=== PATIENT | male | born 1970 | race Caucasian/White ===

== ENCOUNTER 2017-03-14 14:36 | Inpatient (IN) | payer OTHER ==
[2017-03-14] MEDS ORDERED: TYLENOL 325 MG PO PRN (14:39)
[2017-03-14 15:05] LABS: BASOPHIL % 0.2 % (0.0-0.4); Eosinophil % 0.9 % (0.00-5.0); Granulocytes % 78.4 % (36.0-66.0); Mean Cell Volume 89.4 fl (78-100); Mean Platelet Volume 9.8 fl (6-9.5); Monocytes % 8.5 % (0.0-12.0); Platelet Count 341 K/mm3 (150-450); Red Blood Count 4.53 M/mm3 (4.1-5.6); White Blood Count 12.5 K/mm3 (4.0-10.5)
[2017-03-14 15:35] LABS: ALBUMIN 2.8 g/dL (3.4-5.0); ALKALINE PHOSPHATASE 83 U/L (46-116); ANION GAP 13.4 MEQ/L (5-15); BILIRUBIN,TOTAL 0.3 mg/dL (0.2-1.0); BLOOD UREA NITROGEN 13 mg/dL (9-20); CHLORIDE 104 mEq/L (98-107); Carbon Dioxide 26.5 mEq/L (21-32); Glucose 95 MG/DL (70-110); Potassium 4.6 mEq/L (3.5-5.1); SGOT/AST 38 U/L (15-37); SGPT/ALT 114 U/L (12-78); SODIUM 139 mEq/L (136-145); Total Protein 7.2 gm/dL (6.4-8.2)
[2017-03-14] MEDS: LEVOFLOXACIN 750MG/150ML D5W 150 ML IV SCH (15:42)
[2017-03-14] MEDS: Sodium Chloride 0.9% 1000 ML 1,000 ML IV SCH (15:43)
[2017-03-14] MEDS ORDERED: DUONEB 0.5-3 MG/3 ml Neb IH ONE (15:46)
[2017-03-14] MEDS: DUONEB 0.5-3 MG/3 ml Neb IH SCH ×2 (15:51→23:05)
[2017-03-14 16:22] LABS: BAND 2 % (0.0-2.0); Platelet Estimate NORMAL (NORMAL); Total Cells Counted 100
[2017-03-14] MEDS ORDERED: TYLENOL EXTRA STRENGTH 500 MG PO PRN (16:37)
[2017-03-14] MEDS ORDERED: Tessalon Perles 100 MG PO PRN (16:37)
[2017-03-14] MEDS ORDERED: MOTRIN 200 MG PO PRN (16:37)
--- NOTE | 2017-03-14 17:01 | XRAY ---
Indication: Left lung infection not responding to medication. Multiple contiguous axial images obtained through the chest prior to and following 80 cc of Isovue-370 contrast. Comparison: August 15, 2009. In the lateral left upper lobe, there is a large focus of biconvex predominantly consolidative opacity measuring 13 x 7 cm in greatest AP and transverse dimension respectively. There are scattered pockets of air within this opacity as well as air fluid leveling. Margins appear irregular. Primary differential includes abscess versus fungal infection/tuberculosis/pneumocystis pneumonia versus cavitary malignancy. Elsewhere there is again diffuse moderate centrilobular pulmonary emphysema. Stable right upper lobe calcified granuloma. No effusion. Heart is not enlarged. Aorta is normal in course and caliber. There are a few prominent mediastinal lymph nodes predominantly in the AP window, largest measuring 1.8 x 2.0 cm. Bony thorax intact with minimal degenerative changes throughout the spine and multilevel tiny Schmorl nodes. Limited upper abdomen demonstrates new 2.5 cm right adrenal mass with fatty Hounsfield units favoring benign adenoma. Impression: 1. Left upper lobe consolidative opacity as detailed above. Partial differential offered above. 2. Mediastinal prominent lymph nodes presumed reactive. 3. Stable pulmonary emphysema and evidence for old granulomatous disease. 4. New right adrenal adenoma. CTDI 15.74
[2017-03-14] MEDS: Zosyn 3.375GM/100 Ml D5W 100 ML IV SCH ×2 (17:27→23:56)
[2017-03-14] MEDS: TYLENOL EXTRA STRENGTH 500 MG PO PRN (17:27)
[2017-03-14] MEDS ORDERED: ENOXAPARIN SODIUM SQ SCH (18:00)
[2017-03-14] MEDS ORDERED: DUONEB 0.5-3 MG/3 ml Neb IH PRN (19:16)
[2017-03-14] MEDS: MOTRIN 400 MG PO PRN (20:57)
[2017-03-15] MEDS: Sodium Chloride 0.9% 1000 ML 1,000 ML IV SCH (03:20)
[2017-03-15] MEDS: DUONEB 0.5-3 MG/3 ml Neb IH SCH ×6 (03:31→23:05)
[2017-03-15] MEDS: Zosyn 3.375GM/100 Ml D5W 100 ML IV SCH ×4 (05:01→23:09)
[2017-03-15] MEDS ORDERED: Advair Hfa 230/21 Mcg COMMON CANISTER IH SCH ×2 (07:00)
[2017-03-15] MEDS: PATIENT OWN MEDICATION IH SCH (07:07)
--- NOTE | 2017-03-15 08:13 | PCM.NOTE ---
Date and Time: 03/15/17811 Subjective Assessment: still very short of breath - Review of Systems Constitutional: No Fever, No Chills Eyes: No Symptoms Ears, Nose, & Throat: No Symptoms Respiratory: Cough, Orthopnea, Short Of Breath, Wheezing Cardiac: No Chest Pain, No Edema, No Syncope Abdominal/Gastrointestinal: No Abdominal Pain, No Nausea, No Vomiting, No Diarrhea Genitourinary Symptoms: No Dysuria Musculoskeletal: No Back Pain, No Neck Pain Skin: No Rash Neurological: No Dizziness, No Focal Weakness, No Sensory Changes Psychological: No Symptoms Endocrine: No Symptoms Hematologic/Lymphatic: No Symptoms Immunological/Allergic: No Symptoms Objective Exam General Appearance: moderate distress, alert Neurologic Exam: alert, oriented x 3, cooperative, normal mood/affect, nml cerebellar function, sensation nml, No motor deficits Skin Exam: normal color, warm, dry Eye Exam: PERRL, EOMI, eyes nml inspection Ears, Nose, Throat Exam: normal ENT inspection, pharynx normal, moist mucous membranes Neck Exam: normal inspection, non-tender, supple, full range of motion Respiratory Exam: respiratory distress, diminished breath sounds, crackles/rales , rhonchi, wheezing Cardiovascular Exam: regular rate/rhythm, normal heart sounds Gastrointestinal/Abdomen Exam: soft, No tenderness, No mass Extremity Exam: normal inspection, normal range of motion Back Exam: normal inspection, normal range of motion, No CVA tenderness, No vertebral tenderness Male Genitalia Exam: deferred Rectal Exam: deferred OBJECTIVE DATA Vital Signs: Vital Signs - 24 hr Temp Pulse Resp BP Pulse Ox 03/15/17 07:50 98.4 F 103 H 18 115/72 92 L 03/15/17 07:00 106 H 18 94 L 03/15/17 05:57 16 03/15/17 04:00 97.2 F 90 16 107/62 92 L 03/15/17 03:00 90 16 92 L 03/15/17 02:00 21 03/15/17 00:00 98.7 F 99 H 21 117/67 95 03/14/17 23:00 83 18 95 03/14/17 22:00 19 03/14/17 20:00 98.2 F 100 H 19 123/76 95 03/14/17 19:21 90 18 96 03/14/17 15:57 98.0 F 100 H 20 119/85 95 03/14/17 15:42 97 H 18 96 Pain Assessment - Last Documented Pain Intensity 6 Pain Scale Used 0-10 Pain Scale Intake and Output: Intake & Output 03/12/17 03/13/17 03/14/17 03/15/17 11:59 11:59 11:59 11:59 Intake Total 1435 Balance 1435 Weight 90.322 kg Lab Results: Lab Results-Last 24 Hours 03/14/17 03/14/17 Range/Units 14:45 14:45 WBC 12.5 H (4.0-10.5) K/mm3 RBC 4.53 (4.1-5.6) M/mm3 Hgb 13.6 (12.5-18.0) gm/dl Hct 40.5 L (42-50) % MCV 89.4 (78-100) fl MCH 30.0 (26-32) pg MCHC 33.6 (32-36) g/dl RDW 15.0 H (11.5-14.0) % Plt Count 341 (150-450) K/mm3 MPV 9.8 H (6-9.5) fl Gran % 78.4 H (36.0-66.0) % Lymphocytes % 12.0 L (24.0-44.0) % Monocytes % 8.5 (0.0-12.0) % Eosinophils % 0.9 (0.00-5.0) % Basophils % 0.2 (0.0-0.4) % Segmented Neutrophils 86 H (36.-66.) % Band Neutrophils 2 (0.0-2.0) % Lymphocytes (Manual) 10 L (24-44) % Monocytes (Manual) 2 (0.0-12.0) % Basophils # 0.03 (0-0.4) Differential Comment NORMAL Platelet Estimate NORMAL (NORMAL) Sodium 139 (136-145) mEq/L Potassium 4.6 (3.5-5.1) mEq/L Chloride 104 (98-107) mEq/L Carbon Dioxide 26.5 (21-32) mEq/L Anion Gap 13.4 (5-15) MEQ/L BUN 13 (9-20) mg/dL Creatinine 0.96 (0.55-1.30) mg/dl Estimated GFR > 60 ML/MIN Glucose 95 (70-110) MG/DL Calcium 8.7 (8.5-10.1) mg/dL Total Bilirubin 0.3 (0.2-1.0) mg/dL AST 38 H (15-37) U/L ALT 114 H (12-78) U/L Alkaline Phosphatase 83 (46-116) U/L Serum Total Protein 7.2 (6.4-8.2) gm/dL Albumin 2.8 L (3.4-5.0) g/dL Radiology Exams: Radiology Procedures Category Date Time Status CHEST 2 VIEWS (PA AND LAT) Routine Exams 03/16/17 08:00 Ordered CHEST W/WO CONTRAST [CT] Stat Exams 03/14/17 14:45 Completed Multi-Disciplinary Progress Notes: Multi-Disciplinary Progress Notes 03/14/17 15:51 Respiratory Note by Saira Forrester PT TAKES BREO QAM . HAS HAD DOSE TODAY. TO BRING IN HOME MED TO USE Initialized on 03/14/17 15:51 - END OF NOTE Assessment/Plan (1) Failure of outpatient treatment Current Visit: No Status: Acute Code(s): Z78.9 - OTHER SPECIFIED HEALTH STATUS (2) Pneumonia Current Visit: Yes Status: Acute Qualifiers: Pneumonia type: due to unspecified organism Laterality: left Lung location: upper lobe of lung Qualified Code(s): J18.1 - Lobar pneumonia, unspecified organism Code(s): J18.9 - PNEUMONIA, UNSPECIFIED ORGANISM
--- NOTE | 2017-03-15 08:29 | CONS ---
CONSULT DATE: 03/14/2017 HISTORY: Arvind Chappell is a 46 year-old male with significant smoking history who was recently hospitalized at [facility] with left upper lobe pneumonia. The patient was discharged over the weekend by Dr. Amaya. He states that he has continued to have fever spikes with continued pleuritic pain. He was seen by Dr. Amaya in outpatient setting last week and was treated with bronchodilators consisting of Combivent and Breo. The patient's symptoms got progressively worse leading to another admission at [facility]. His chest x-ray performed showed a possible cavitating air fluid level. However a CT chest was obtained earlier that has only shown persistent infiltrate involving the left upper lobe. At the time of my evaluation the patient is awake, able to speak. He is on room air maintaining good oxygen saturation. He reports low grade temperature at home. He has not had any hemoptysis. He does report cough productive of thick mucopurulent expectoration. PAST MEDICAL HISTORY: Positive for chronic obstructive pulmonary disease. The patient unfortunately continues to smoke during this entire stay. PAST SURGICAL HISTORY: Appendectomy, testicular surgery. PERSONAL AND SOCIAL HISTORY: Smokes half to one pack of cigarettes per day. with family. MEDICATIONS: Home and current medications are reviewed. ALLERGIES: NKDA. PHYSICAL EXAMINATION: This is a middle aged male who appears comfortable. Vital signs are noted. HEENT: Normocephalic. Oral exam is limited. NECK: Supple. CVS: First and second heart sounds are normal, regular, rhythmic. RESPIRATORY: Shows diminished breath sounds, occasional crackles are heard on left. ABDOMEN: Soft, no edema is noted. LABORATORY DATA AND TESTS: White blood cell count 12.5, hemoglobin 13.6, hematocrit 40.5, PLT 341,000. Sodium 139, potassium 4.6, chloride 104, bicarb 26, glucose 95, BUN 13, creatinine 0.9. Chest x-ray and CT chest were reviewed. ASSESSMENT: This is a 46 year old male admitted with: 1) Non-resolving left upper lobe community acquired pneumonia. 2) Underlying chronic obstructive pulmonary disease with mild exacerbation. 3) Nicotine addiction. RECOMMENDATIONS: 1) The patient has been started on Zosyn and Levaquin. 2) Check sputum and blood cultures. 3) Continue bronchodilators. 4) Need for smoking cessation was stressed. 5) Will obtain follow up x-ray in 48 hours. If no improvement is noted he will require additional diagnostic work up including possible bronchoscopy and may require to be transferred to [facility] for the same. Further recommendations pending clinical improvement which is imperative that the patient is followed until complete resolution of this infiltrate particularly given his history of smoking and this was discussed with the patient. I will continue to follow.
[2017-03-15] MEDS: TYLENOL EXTRA STRENGTH 500 MG PO PRN (08:53)
[2017-03-15] MEDS ORDERED: NON-FORMULARY ITEM (Fluticasone/Vilanterol [Breo Ellipta 200-25 Mcg Inh] 1 EACH) IH SCH (10:00)
[2017-03-15] MEDS: ENOXAPARIN SODIUM SQ SCH (10:12)
[2017-03-15] MEDS: MOTRIN 400 MG PO PRN (11:23)
[2017-03-15] MEDS: LEVOFLOXACIN 750MG/150ML D5W 150 ML IV SCH (11:23)
[2017-03-15] MEDS: Nicoderm CQ 21 MG TOP SCH (13:32)
[2017-03-15] MEDS: ULTRAM 50 MG PO PRN ×2 (15:38→21:13)
[2017-03-15] MEDS ORDERED: Sodium Chloride 0.9% 1000 ML 1,000 ML IV SCH (18:53)
[2017-03-16] MEDS: DUONEB 0.5-3 MG/3 ml Neb IH SCH ×4 (02:54→14:53)
[2017-03-16] MEDS: Zosyn 3.375GM/100 Ml D5W 100 ML IV SCH ×3 (05:25→17:35)
[2017-03-16] MEDS: ULTRAM 50 MG PO PRN ×2 (05:31→13:35)
[2017-03-16] MEDS: PATIENT OWN MEDICATION IH SCH (06:57)
--- NOTE | 2017-03-16 08:44 | XRAY ---
Indication: Pneumonia. Comparison: March 12, 2017. PA/lateral chest demonstrates very minimal improvement to the left upper lobe consolidating opacity. Remaining heart and lungs stable and unremarkable.
[2017-03-16] MEDS: Nicoderm CQ 21 MG TOP SCH (09:38)
[2017-03-16] MEDS: LEVOFLOXACIN 750MG/150ML D5W 150 ML IV SCH (09:39)
[2017-03-16] MEDS: ENOXAPARIN SODIUM SQ SCH (09:39)
[2017-03-16 16:14] VITALS: BP 106/69; PULSE 96; O2SAT 94
--- NOTE | 2017-03-17 07:45 | PROG NOTE ---
DATE: 03/16/2017 HISTORY: Arvind Chappell is a 46 year-old male evaluated by me two days ago for non-resolving left upper lobe pneumonia. The patient was treated with IV Zosyn and Levaquin. He has done well over the past 48 hours. At the time of my evaluation today he is sitting in a chair. The patient reports that he feels as good as back to normal self. His vital signs are stable. He has remained afebrile. PHYSICAL EXAMINATION: HEENT: Normocephalic. Oral exam is unremarkable. NECK: Supple. CVS: First and second heart sounds are normal, regular, rhythmic. RESPIRATORY: Shows diminished breath sounds. Clear to auscultation. ABDOMEN: Soft. No edema is noted. LABORATORY DATA AND TESTS: Repeat chest x-ray performed today shows improvement in left upper lobe infiltrate. ASSESSMENT: This is a 46 year old male admitted with: 1) Left upper lobe community acquired. 2) Probable underlying chronic obstructive pulmonary disease. RECOMMENDATIONS: The patient clinically has recovered 100% and it seems that although radiologic improvement is seen it may be somewhat slower than clinical improvement. In view of this I have advised the patient be sent home on oral antibiotics for ten days. Will switch him to Avelox 400 mg p.o. daily for ten days once a day and doxycycline 100 mg p.o. b.i.d. for ten days. I will re-evaluate the patient on 03/29/2017 in the [place] office with a repeat chest x-ray. If infiltrates fail to completely resolve additional work up including bronchoscopy will be warranted. However given clinical improvement I do not see any need to push the patient through an invasive procedure at this point when he is clinically showing definite improvement. I have advised the patient to stay off of work until he has cleared. The patient has a Combivent inhaler along with Breo inhaler and I have advised to use both of those as well. I will do pulmonary function test in outpatient setting. He has been provided with my office number and I have advised him to call if any changes are noted in between.
== END 2017-03-16 18:40 | disposition home or self-care (01) | DRG 194 ==
LOC: OBSVTOIN 14:36 → ICU 14:36 → MED SURG 18:43
PROVIDERS: ADMIT General Practice; ATTEND General Practice
DX: J18.9 Pneumonia, unspecified organism (principal); J44.1 Chronic obstructive pulmonary disease with (acute) exacerbation; F17.200 Nicotine dependence, unspecified, uncomplicated; Z78.9 Other specified health status
CPT/HCPCS: 36415; 71020; 71270; 80053; 85025; 87040; 87070; 87077; 87186; 94640; 94760; J1650; J1956; J2543; A9270-GY

== ENCOUNTER 2021-11-29 01:24 | Observation (INO) | payer OTHER ==
[2021-11-29] MEDS ORDERED: DUONEB 0.5-3 MG/3 ml Neb IH ONE (01:38)
[2021-11-29] MEDS ORDERED: Zithromax 500 MG/ 250 ML NaCl Premix 500 MG/250 ML IVPB IV STA (01:38)
[2021-11-29] MEDS ORDERED: ROCEPHIN 2 Gm-D5w 50ML BAG** 2 G/50 ML IVPB IV STA (01:39)
--- NOTE | 2021-11-29 01:43 | ERPHSYRPT ---
- History of Present Illness Time Seen by Provider: 11/29/21 01:37 Source: patient, EMS Exam Limitations: clinical condition Physician History: 51 years old with history of COPD, tobacco abuse presented in ER with sudden onset shortness of breath waking him up from sleep almost half an hour prior to arrival. On EMS arrival patient was in respiratory distress with oxygen saturation in the 80s, given DuoNeb, Solu-Medrol and on presentation patient is still in distress, given another DuoNeb and placed on BiPAP. Patient reports having cough productive of clear to yellow sputum with increased wheezing and chest tightness pressure all over. No fever or chills reported. Denies history of CAD or CHF. Vaccinated for COVID-19. Timing/Duration: today, constant, sudden, worse Activities at Onset: sleep Severity of Dyspnea-Max: severe Severity of Dyspnea-Current: severe Possible Cause: unknown cause Modifying Factors: Improves With: albuterol nebulizer. Worsens With: coughing Associated Symptoms: cough, chest pain/discomfort, wheezing, heaviness, painful breathing, productive cough, tightness, No fever Allergies/Adverse Reactions: No Known Drug Allergies Allergy (Verified 03/14/17 15:39) Home Medications: Acetaminophen [Tylenol Extra Strength] 1,000 mg PO Q4-6HPRN PRN 03/14/17 [History] Albuterol/Ipratropium 3ml Neb* [DUONEB 0.5-3 MG/3 ml Neb] 3 ml IH Q4H 03/14/17 [History] Benzonatate [Tessalon Perle] 200 mg PO Q4HPRN PRN 03/14/17 [History] Fluticasone/Vilanterol [Breo Ellipta 200-25 Mcg INH] 1 each IH DAILY 03/14/17 [History] Ibuprofen 200 mg [Motrin 200 mg] 800 mg PO Q6HPRN PRN 03/14/17 [History] Ipratropium/Albuterol Sulfate [Combivent Inhaler] 2 puff IH BID 03/14/17 [History] - Review of Systems Constitutional: No Symptoms Eyes: No Symptoms Ears, Nose, & Throat: No Symptoms Respiratory: Cough, Dyspnea, Dyspnea on Exertion (WATTS), Wheezing Cardiac: No Symptoms Abdominal/Gastrointestinal: No Symptoms Genitourinary Symptoms: No Symptoms Musculoskeletal: No Symptoms Skin: No Symptoms Neurological: No Symptoms Psychological: No Symptoms Endocrine: No Symptoms Hematologic/Lymphatic: No Symptoms Immunological/Allergic: No Symptoms - Past Medical History Pertinent Past Medical History: Yes Neurological History: No Pertinent History ENT History: No Pertinent History Cardiac History: No Pertinent History Respiratory History: Bronchitis, COPD, Pneumonia Endocrine Medical History: No Pertinent History Musculoskeletal History: No Pertinent History GI Medical History: No Pertinent History History: No Pertinent History Psycho-Social History: No Pertinent History Male Reproductive Disorders: No Pertinent History - Past Surgical History Past Surgical History: Yes Neuro Surgical History: No Pertinent History Cardiac: No Pertinent History Respiratory: No Pertinent History Gastrointestinal: Appendectomy Genitourinary: No Pertinent History Musculoskeletal: No Pertinent History Male Surgical History: No Pertinent History - Social History Smoking Status: Current every day smoker How long have you smoked: 30+ years Exposure to second hand smoke: Yes Drug Use: none - Nursing Vital Signs Nursing Vital Signs: Initial Vital Signs Temperature 99.1 F 11/29/21 01:36 Pulse Rate 108 H 11/29/21 01:36 Respiratory Rate 30 H 11/29/21 01:36 Blood Pressure 106/80 11/29/21 01:36 O2 Sat by Pulse Oximetry 96 11/29/21 01:36 Pain Scale Pain Intensity 0 - Physical Exam General Appearance: moderate distress, alert, anxiety Eye Exam: PERRL/EOMI, eyes nml inspection Ears, Nose, Throat Exam: hearing grossly normal, pharyngeal erythema Neck Exam: normal inspection, non-tender, supple, full range of motion Respiratory Exam: respiratory distress, diminished breath sounds, accessory muscle use, crackles/rales, rhonchi, wheezing Cardiovascular/Chest Exam: normal heart sounds, tachycardia Abdominal/Gastrointestinal Exam: soft, normal bowel sounds Extremity Exam: non-tender, normal range of motion Neurologic Exam: alert, oriented x 3, cooperative Skin Exam: normal color SpO2 Interpretation: O2 applied SpO2: 97 O2 Delivery: BiPap/CPAP - Course EKG Interpreted by Me: RATE ([id number]), Sinus Tach, LAFB, NORMAL INTERVALS, Non- specific ST Changes Ordered Tests: Active Orders 24 hr Category Date Time Status Immersion Metal Cleaner STAT Care 11/29/21 01:38 Active EKG-ER Only STAT Care 11/29/21 01:38 Active IV Insertion STAT Care 11/29/21 01:38 Active CHEST 1 VIEW (PORTABLE) Stat Exams 11/29/21 01:30 Taken ARTERIAL BLOOD GASES Stat Lab 11/29/21 01:32 Completed BLOOD CULTURE Stat Lab 11/29/21 01:55 Received CBC W DIFF Stat Lab 11/29/21 01:55 Completed CMP Stat Lab 11/29/21 01:55 Completed D-DIMER QUANTITATIVE Stat Lab 11/29/21 01:55 Completed Lactic Acid Stat Lab 11/29/21 01:32 Completed MAGNESIUM Stat Lab 11/29/21 01:55 Completed NT PRO BNP Stat Lab 11/29/21 01:55 Completed TROPONIN Q3H Lab 11/29/21 01:56 Completed TROPONIN Q3H Lab 11/29/21 04:45 Ordered TROPONIN Q3H Lab 11/29/21 07:45 Ordered TROPONIN Q3H Lab 11/29/21 10:45 Ordered TROPONIN Q3H Lab 11/29/21 13:45 Ordered UA W/RFX UR CULTURE Stat Lab 11/29/21 01:38 Ordered Medication Summary Discontinued Medications Generic Name Dose Route Start Last Admin Trade Name Freq PRN Reason Stop Dose Admin Albuterol Sulfate Confirm 11/29/21 02:35 Albuterol Sulfate 2.5 Mg/3 Ml Neb Administered 11/29/21 02:36 Dose 2.5 mg IH .STK-MED ONE Albuterol/Ipratropium 3 ml 11/29/21 01:38 Ipratropium/Albuterol Sulfate 3 Ml Ampul.Neb IH 11/29/21 01:39 STAT ONE Azithromycin 500 mg in 250 mls @ 250 mls/hr 11/29/21 01:38 11/29/21 02:04 Zithromax 500 Mg/ 250 Ml Nacl Premix IV 11/29/21 02:37 250 mls/hr STAT STA 250 mls/hr Administration Ceftriaxone Sodium/Dextrose 2 g in 50 mls @ 100 mls/hr 11/29/21 01:39 11/29/21 01:59 Rocephin 2 Gm-D5w 50ml Bag IV 11/29/21 02:08 100 mls/hr STAT STA 100 mls/hr Administration Azithromycin Confirm 11/29/21 01:58 Zithromax 500 Mg/ 250 Ml Nacl Premix Administered 11/29/21 01:59 Dose 500 mg in 250 mls @ ud IV .STK-MED ONE Ceftriaxone Sodium/Dextrose Confirm 11/29/21 01:58 Rocephin 2 Gm-D5w 50ml Bag Administered 11/29/21 01:59 Dose 2 g in 50 mls @ ud IV .STK-MED ONE Lorazepam 1 mg 11/29/21 01:56 11/29/21 02:17 Lorazepam 2 Mg/1 Ml 2 Mg Vial IV 11/29/21 01:57 1 mg STAT ONE Administration Lorazepam Confirm 11/29/21 01:57 Lorazepam 2 Mg/1 Ml 2 Mg Vial Administered 11/29/21 01:58 Dose 2 mg .ROUTE .STK-MED ONE Lab/Rad Data: Laboratory Result Diagrams 11/29/21 01:55 11/29/21 01:55 Laboratory Results 11/29/21 11/29/21 11/29/21 Range/Units 01:56 01:55 01:55 WBC (4.0-10.5) K/mm3 RBC (4.1-5.6) M/mm3 Hgb (12.5-18.0) gm/dl Hct (42-50) % MCV (78-100) fl MCH (26-32) pg MCHC (32-36) g/dl RDW (11.5-14.0) % Plt Count (150-450) K/mm3 MPV (7.5-11.0) fl Gran % (36.0-66.0) % Eos # (Auto) (0-0.5) Absolute Lymphs (auto) (1.0-4.6) Absolute Monos (auto) (0.0-1.3) Lymphocytes % (24.0-44.0) % Monocytes % (0.0-12.0) % Eosinophils % (0.00-5.0) % Basophils % (0.0-0.4) % Absolute Granulocytes (1.4-6.9) Basophils # (0-0.4) D-Dimer 413 (215-500) ng/mL Puncture Site pCO2 (35-45) mmHg pO2 (75-100) mmHg Base Excess (-2.0-2.0) O2 Saturation (94-100) g/dF ABG pH (7.35-7.45) ABG HCO3 (22-28) ABG O2 Sat (Measured) (95-100) % Edmar Test A-a Gradient a/A Ratio Hemoglobin Carboxyhemoglobin (0.0-6.9) % THgb Methemoglobin (1.4-1.5) % Potassium 4.1 (3.5-5.1) Temperature C POC O2 Flow Rate % Inspiratory BiPAP Expiratory BiPAP Sodium 136 L (137-145) mmol/L Chloride 105 (98-107) mmol/L Carbon Dioxide 23 (22-30) mmol/L Anion Gap 12.1 (5-15) MEQ/L BUN 16 (9-20) mg/dL Creatinine 1.05 (0.66-1.25) mg/dL Estimated GFR > 60.0 ML/MIN Glucose 117 H (74-106) mg/dL Lactic Acid (0.4-2.0) Calcium 9.1 (8.4-10.2) mg/dL Magnesium 1.8 (1.6-2.3) mg/dL Total Bilirubin 0.50 (0.2-1.3) mg/dL AST 22 (17-59) U/L ALT 21 (0-50) U/L Alkaline Phosphatase 69 (38-126) U/L Troponin I 0.013 (0.000-0.034) ng/mL NT-Pro-B Natriuret Pep 24.8 (0-900) pg/mL Serum Total Protein 6.9 (6.3-8.2) g/dL Albumin 4.3 (3.5-5.0) g/dL 11/29/21 11/29/21 Range/Units 01:55 01:32 WBC 7.4 (4.0-10.5) K/mm3 RBC 5.06 (4.1-5.6) M/mm3 Hgb 15.3 (12.5-18.0) gm/dl Hct 46.2 (42-50) % MCV 91.3 (78-100) fl MCH 30.2 (26-32) pg MCHC 33.1 (32-36) g/dl RDW 14.1 H (11.5-14.0) % Plt Count 171 (150-450) K/mm3 MPV 11.1 H (7.5-11.0) fl Gran % 70.0 H (36.0-66.0) % Eos # (Auto) 0.13 (0-0.5) Absolute Lymphs (auto) 1.14 (1.0-4.6) Absolute Monos (auto) 0.91 (0.0-1.3) Lymphocytes % 15.5 L (24.0-44.0) % Monocytes % 12.4 H (0.0-12.0) % Eosinophils % 1.8 (0.00-5.0) % Basophils % 0.3 (0.0-0.4) % Absolute Granulocytes 5.15 (1.4-6.9) Basophils # 0.02 (0-0.4) D-Dimer (215-500) ng/mL Puncture Site LEFT BRACHIAL pCO2 33 L (35-45) mmHg pO2 526 H* (75-100) mmHg Base Excess 0.9 (-2.0-2.0) O2 Saturation 93.5 L (94-100) g/dF ABG pH 7.47 H (7.35-7.45) ABG HCO3 24.0 (22-28) ABG O2 Sat (Measured) 99.5 (95-100) % Edmar Test NOT APPLICABLE A-a Gradient 146 a/A Ratio 0.78 Hemoglobin 15.3 Carboxyhemoglobin 5.3 (0.0-6.9) % THgb Methemoglobin 0.8 L (1.4-1.5) % Potassium 4.1 (3.5-5.1) Temperature 37.0 C POC O2 Flow Rate 100 % Inspiratory BiPAP 16 Expiratory BiPAP 8 Sodium (137-145) mmol/L Chloride (98-107) mmol/L Carbon Dioxide (22-30) mmol/L Anion Gap (5-15) MEQ/L BUN (9-20) mg/dL Creatinine (0.66-1.25) mg/dL Estimated GFR ML/MIN Glucose (74-106) mg/dL Lactic Acid 0.7 (0.4-2.0) Calcium (8.4-10.2) mg/dL Magnesium (1.6-2.3) mg/dL Total Bilirubin (0.2-1.3) mg/dL AST (17-59) U/L ALT (0-50) U/L Alkaline Phosphatase (38-126) U/L Troponin I (0.000-0.034) ng/mL NT-Pro-B Natriuret Pep (0-900) pg/mL Serum Total Protein (6.3-8.2) g/dL Albumin (3.5-5.0) g/dL - Progress Progress: improved Air Movement: good Progress Note: 11/29/21 02:47 d/w Blood Culture(s) Obtained: Yes Antibiotics given: Yes Discussed with : Prasanna Will see patient in: hospital (observation) Counseled pt/family regarding: lab results, diagnosis, rad results, smoking cessation - Departure Departure Disposition: Observation Clinical Impression: COPD with acute exacerbation Condition: Stable Critical Care Time: Yes Critical Care Time(excluding separately billable procedures): Critical 30-74 mins Referrals: CATINA FERNANDES MD [Primary Care Provider] - Follow up/PCP as directed Instructions: Chronic Obstructive Pulmonary Disease
[2021-11-29 01:52] LABS: A-aADO2 146; ABG HEMOGLOBIN 15.3; ABG POTASSIUM 4.1 (3.5-5.1); ABG SITE LEFT BRACHIAL; ARTERIAL BLD GAS O2 SATURATION 99.5 % (95-100); ARTERIAL BLOOD GAS BASE EXCESS 0.9 (-2.0-2.0); ARTERIAL BLOOD GAS FIO2 100 %; ARTERIAL BLOOD GAS PCO2 33 mmHg (35-45); ARTERIAL BLOOD GAS PO2 526 mmHg (75-100); ARTERIAL BLOOD GAS pH 7.47 (7.35-7.45); CARBOXYHEMOGLOBIN 5.3 % THgb (0.0-6.9); HGB O2 SAT 93.5 g/dF (94-100); Lactic Acid 0.7 (0.4-2.0); Methhemoglobin 0.8 % (1.4-1.5)
[2021-11-29] MEDS ORDERED: Ativan 2 MG/1 ML VIAL IV ONE (01:56)
[2021-11-29] MEDS ORDERED: Ativan 2 MG/1 ML VIAL ONE (01:57)
[2021-11-29] MEDS ORDERED: Zithromax 500 MG/ 250 ML NaCl Premix 500 MG/250 ML IVPB IV ONE (01:58)
[2021-11-29] MEDS ORDERED: ROCEPHIN 2 Gm-D5w 50ML BAG** 2 G/50 ML IVPB IV ONE (01:58)
[2021-11-29 02:00] LABS: Absolute Neutrophil Ct (ANC) 5.15 (1.4-6.9); Basophil (Absolute #) 0.02 (0-0.4); Eosinophil % 1.8 % (0.00-5.0); Eosinophil (Absolute #) 0.13 (0-0.5); Hematocrit 46.2 % (42-50); Hemoglobin 15.3 gm/dl (12.5-18.0); Lymphocyte (Absolute #) 1.14 (1.0-4.6); Lymphocytes % 15.5 % (24.0-44.0); Mean Cell Volume 91.3 fl (78-100); Mean Corpuscular Hemoglobin 30.2 pg (26-32); Mean Corpuscular Hgb Concent. 33.1 g/dl (32-36); Mean Platelet Volume 11.1 fl (7.5-11.0); Monocyte (Absolute #) 0.91 (0.0-1.3); Monocytes % 12.4 % (0.0-12.0); Platelet Count 171 K/mm3 (150-450); Red Blood Count 5.06 M/mm3 (4.1-5.6); Red Cell Distribution Width 14.1 % (11.5-14.0); White Blood Count 7.4 K/mm3 (4.0-10.5)
[2021-11-29 02:16] LABS: ALBUMIN 4.3 g/dL (3.5-5.0); ALKALINE PHOSPHATASE 69 U/L (38-126); ANION GAP 12.1 MEQ/L (5-15); BLOOD UREA NITROGEN 16 mg/dL (9-20); CHLORIDE 105 mmol/L (98-107); Calcium 9.1 mg/dL (8.4-10.2); Carbon Dioxide 23 mmol/L (22-30); Creatinine 1 1.05 mg/dL (0.66-1.25); EST GLOMERULAR FILTRATION RATE > 60.0 ML/MIN; Glucose 117 mg/dL (74-106); MAGNESIUM 1.8 mg/dL (1.6-2.3); NT PRO BNP 24.8 pg/mL (0-900); Potassium 4.1 mmol/L (3.5-5.1); SGOT/AST 22 U/L (17-59); SGPT/ALT 21 U/L (0-50); SODIUM 136 mmol/L (137-145); Total Protein 6.9 g/dL (6.3-8.2)
[2021-11-29] MEDS ORDERED: PROVENTIL 2.5 MG/3 ML NEB IH ONE (02:35)
[2021-11-29 03:47] LABS: INFLUENZA A NEGATIVE (NEGATIVE); INFLUENZA B NEGATIVE (NEGATIVE); RESPIRATORY SYNCTIAL VIRUS NEGATIVE (Negative); SARS-CoV-2 Xpert Express NEGATIVE (NEGATIVE)
[2021-11-29] MEDS ORDERED: TYLENOL 325 MG PO PRN (04:39)
[2021-11-29] MEDS ORDERED: Zofran 4 MG/2 ML VIAL IV PRN (04:39)
[2021-11-29] MEDS ORDERED: HUMALOG SQ PRN (04:39)
[2021-11-29] MEDS ORDERED: MORPHINE SULFATE 2 MG INJ IV PRN (04:39)
[2021-11-29] MEDS ORDERED: solu-MEDROL ONE ×2 (05:33→08:46)
[2021-11-29] MEDS: DUONEB 0.5-3 MG/3 ml Neb IH SCH ×5 (05:38→19:04)
[2021-11-29] MEDS ORDERED: solu-MEDROL 80 MG, Sterile H2O 10 ml 2 ML IV SCH ×2 (06:00)
[2021-11-29] MEDS: Advair Hfa 115/21 Common canister IH SCH ×2 (07:33→19:06)
--- NOTE | 2021-11-29 07:50 | XRAY ---
Indication: Respiratory distress. Comparison: June 22, 2018. Portable apical lordotic chest again demonstrates COPD, minimal bilateral fibrosis/scarring, and tiny right upper lobe calcified granuloma. Heart not enlarged. Bony thorax intact. No new/acute findings. Comment: Preliminary interpretation made by C. No critical discrepancy.
[2021-11-29] MEDS ORDERED: solu-MEDROL 40 MG, Sterile H2O 10 ml 1 ML IV STA ×2 (08:22)
[2021-11-29] MEDS ORDERED: THEOPHYLLINE ER 24HR PO ONE (08:45)
[2021-11-29 09:57] LABS: Appearance CLEAR (CLEAR); Bacteria RARE /HPF (NEGATIVE); Bilirubin NEGATIVE (NEGATIVE); Blood SMALL Ery/ul (0-5); Glucose NEGATIVE (NEGATIVE); Ketones NEGATIVE (NEGATIVE); Leukocyte Esterase NEGATIVE (NEGATIVE); Mucus SLIGHT /HPF (NEGATIVE); Nitrite NEGATIVE (NEGATIVE); Protein,Urine Dip 30 (Negative); Specific Gravity 1.018 (1.005-1.025); Urobilinogen NEGATIVE mg/dL (0-1)
[2021-11-29] MEDS: PROTONIX 40 MG IV IV SCH (10:10)
[2021-11-29] MEDS: ENOXAPARIN SODIUM SQ SCH (10:10)
[2021-11-29] MEDS: Cozaar 50 MG PO SCH (11:58)
[2021-11-29] MEDS: solu-MEDROL IV SCH ×3 (11:58→23:52)
[2021-11-29] MEDS: Nicoderm CQ 21 MG TOP SCH (11:58)
[2021-11-29] MEDS: MOTRIN 400 MG PO PRN ×2 (11:59→20:57)
[2021-11-29] MEDS: Coreg 3.125 MG PO SCH ×2 (11:59→21:06)
[2021-11-29] MEDS ORDERED: Singulair 10 MG PO SCH (12:00)
[2021-11-29] MEDS ORDERED: Ventolin Hfa MDI IH SCH (13:00)
--- NOTE | 2021-11-29 13:50 | PCM.HP ---
History of Present Illness - Chief Complaint Chief Complaint: COPD Exacerbation History of Present Illness: is a 51 year old male pt of Dr. Amaya with COPD and TOB abuse who was admitted through ER for COPD exacerbation. His CXR was nonacute, EKG without ST elevations, and D-dimer was wnl. Initial troponin was normal, and his next one was elevated but they have been trending down ever since. He had a history of a severe fungal pneumonia about 5years ago for which he followed Dr. Edwin Lyons. 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 His appreciated that the character of his cough has been different for the past 3 weeks. Before admission, he woke up more short of breath than usual and it did not improve with nebulizer treatments. EMS found him to have O2 saturations inthe 80s, and they gave him duonebs and solumedrol en route. In ER, he was put on Bipap temporarily until he improved. Pt is supposed to wear O2 at home, but he only wears it prn. He also has hx KENYA but insurance determined he did not wear CPAP frequently enough (they required 5h/night, but pt often doesn't even sleep 5h a night) so pt was not allowed to keep the machine. This morning he was still having SOB and was given an extra dose of solumedrol and is now feeling a little better. - Review of Systems Respiratory: Cough, Short Of Breath, Wheezing Musculoskeletal: Arthralgias (L shoulder pain), Myalgias (frequent side cramps ) All Other Systems: Reviewed and Negative Medications & Allergies Home Medications: Home Medication List Albuterol/Ipratropium 3ml Neb* [DUONEB 0.5-3 MG/3 ml Neb] 3 ml IH QID 03/14/17 [History Confirmed 11/29/21] Albuterol Sulfate [Albuterol Sulfate Hfa] 8.5 gm IH QID 11/29/21 [History Confirmed 11/29/21] Budesonide/Glycopyr/Formoterol [Breztri Aerosphere Inhaler] 2 puffs IH BID 08/12 [History Confirmed 11/29/21] Carvedilol 3.125 mg [Coreg 3.125 MG] 3.125 mg PO BID 11/29/21 [History Confirmed 11/29/21] Losartan Potassium [Cozaar] 25 mg PO DAILY 11/29/21 [History Confirmed 11/29/21] Montelukast Sodium 10 mg [Singulair 10 MG] 10 mg PO DAILY 11/29/21 [History Confirmed 11/29/21] Theophylline Anhydrous 300 mg* [Theodur 300MG] 300 mg PO BID 11/29/21 [History Confirmed 11/29/21] Allergies/Adverse Reactions: Allergies Allergy/AdvReac Type Severity Reaction Status Date / Time No Known Drug Allergies Allergy Verified 11/29/21 05:31 - Past Medical History Past Medical History: Yes Neurological History: No Pertinent History ENT History: No Pertinent History Cardiac History: No Pertinent History Respiratory History: Bronchitis, COPD, Pneumonia Endocrine Medical History: No Pertinent History Musculoskelatal History: No Pertinent History GI Medical History: No Pertinent History History: No Pertinent History Pyscho-Social History: No Pertinent History Male Reproductive Disorders: No Pertinent History Comment: 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 - Past Surgical History Past Surgical History: Yes Neuro Surgical History: No Pertinent History Cardiac History: No Pertinent History Respiratory Surgery: No Pertinent History GI Surgical History: Appendectomy Genitourinary Surgical Hx: No Pertinent History Musculskeletal Surgical Hx: No Pertinent History Male Surgical History: No Pertinent History - Social History Smoking Status: Current every day smoker How long have you smoked: 30+ years Exposure to second hand smoke: Yes Alcohol: None Drug Use: none - Physical Exam Vital Signs: Vital Signs - 24 hr Temp Pulse Resp BP Pulse Ox 11/29/21 12:00 98.0 F 99 H 18 103/62 93 L 11/29/21 11:52 97 11/29/21 08:00 98.7 F 107 H 16 115/76 97 11/29/21 05:42 94 L 11/29/21 05:41 101 H 32 H 94 L 11/29/21 04:34 99.1 F 99 H 18 134/82 95 11/29/21 04:01 99 H 18 131/86 92 L 11/29/21 03:00 98 H 18 98/69 95 11/29/21 02:47 97 11/29/21 02:25 109 H 20 109/74 95 11/29/21 01:36 99.1 F 108 H 30 H 106/80 97 General Appearance: mild distress (mild tripod posture), alert Neurologic Exam: oriented x 3, cooperative, normal mood/affect Eye Exam: eyes nml inspection Ears, Nose, Throat Exam: moist mucous membranes Neck Exam: normal inspection, non-tender, No lymphadenopathy Respiratory Exam: diminished breath sounds (poor air exchange), prolonged expirations, No crackles/rales, No rhonchi, No wheezing Cardiovascular Exam: regular rate/rhythm, normal heart sounds, No murmur Gastrointestinal/Abdomen Exam: soft, normal bowel sounds, No tenderness, No distention, No mass, No guarding, No rebound Back Exam: normal inspection, No rash Extremity Exam: normal inspection, No pedal edema, No swelling Skin Exam: normal color, warm, dry, No rash Results - Labs Lab/Micro Results: Lab Results-Last 24 Hours 11/29/21 11/29/21 11/29/21 Range/Units 01:32 01:55 01:55 WBC 7.4 (4.0-10.5) K/mm3 RBC 5.06 (4.1-5.6) M/mm3 Hgb 15.3 (12.5-18.0) gm/dl Hct 46.2 (42-50) % MCV 91.3 (78-100) fl MCH 30.2 (26-32) pg MCHC 33.1 (32-36) g/dl RDW 14.1 H (11.5-14.0) % Plt Count 171 (150-450) K/mm3 MPV 11.1 H (7.5-11.0) fl Gran % 70.0 H (36.0-66.0) % Eos # (Auto) 0.13 (0-0.5) Absolute Lymphs (auto) 1.14 (1.0-4.6) Absolute Monos (auto) 0.91 (0.0-1.3) Lymphocytes % 15.5 L (24.0-44.0) % Monocytes % 12.4 H (0.0-12.0) % Eosinophils % 1.8 (0.00-5.0) % Basophils % 0.3 (0.0-0.4) % Absolute Granulocytes 5.15 (1.4-6.9) Basophils # 0.02 (0-0.4) D-Dimer (215-500) ng/mL Puncture Site LEFT BRACHIAL pCO2 33 L (35-45) mmHg pO2 526 H* (75-100) mmHg Base Excess 0.9 (-2.0-2.0) O2 Saturation 93.5 L (94-100) g/dF ABG pH 7.47 H (7.35-7.45) ABG HCO3 24.0 (22-28) ABG O2 Sat (Measured) 99.5 (95-100) % [place] Test NOT APPLICABLE A-a Gradient 146 a/A Ratio 0.78 Hemoglobin 15.3 Carboxyhemoglobin 5.3 (0.0-6.9) % THgb Methemoglobin 0.8 L (1.4-1.5) % Potassium 4.1 4.1 (3.5-5.1) Temperature 37.0 C POC O2 Flow Rate 100 % Inspiratory BiPAP 16 Expiratory BiPAP 8 Sodium 136 L (137-145) mmol/L Chloride 105 (98-107) mmol/L Carbon Dioxide 23 (22-30) mmol/L Anion Gap 12.1 (5-15) MEQ/L BUN 16 (9-20) mg/dL Creatinine 1.05 (0.66-1.25) mg/dL Estimated GFR > 60.0 ML/MIN Glucose 117 H (74-106) mg/dL Lactic Acid 0.7 (0.4-2.0) Calcium 9.1 (8.4-10.2) mg/dL Magnesium 1.8 (1.6-2.3) mg/dL Total Bilirubin 0.50 (0.2-1.3) mg/dL AST 22 (17-59) U/L ALT 21 (0-50) U/L Alkaline Phosphatase 69 (38-126) U/L Troponin I (0.000-0.034) ng/mL NT-Pro-B Natriuret Pep 24.8 (0-900) pg/mL Serum Total Protein 6.9 (6.3-8.2) g/dL Albumin 4.3 (3.5-5.0) g/dL Urine Color (YELLOW) Urine Appearance (CLEAR) Urine pH (5-6) Ur Specific [place] (1.005-1.025) Urine Protein (Negative) Urine Ketones (NEGATIVE) Urine Blood (0-5) Donaldo/ul Urine Nitrite (NEGATIVE) Urine Bilirubin (NEGATIVE) Urine Urobilinogen (0-1) mg/dL Ur Leukocyte Esterase (NEGATIVE) Urine WBC (Auto) (0-5) /HPF Urine RBC (Auto) (0-2) /HPF U Epithel Cells (Auto) (FEW) /HPF Urine Bacteria (Auto) (NEGATIVE) /HPF Urine Mucus (Auto) (NEGATIVE) /HPF Urine Culture Reflexed (NO) Urine Glucose (NEGATIVE) mg/dL Influenza Type A Ag (NEGATIVE) Influenza Type B Ag (NEGATIVE) RSV (PCR) (Negative) SARS-CoV-2 (PCR) (NEGATIVE) 11/29/21 11/29/21 11/29/21 Range/Units 01:55 01:56 03:03 WBC (4.0-10.5) K/mm3 RBC (4.1-5.6) M/mm3 Hgb (12.5-18.0) gm/dl Hct (42-50) % MCV (78-100) fl MCH (26-32) pg MCHC (32-36) g/dl RDW (11.5-14.0) % Plt Count (150-450) K/mm3 MPV (7.5-11.0) fl Gran % (36.0-66.0) % Eos # (Auto) (0-0.5) Absolute Lymphs (auto) (1.0-4.6) Absolute Monos (auto) (0.0-1.3) Lymphocytes % (24.0-44.0) % Monocytes % (0.0-12.0) % Eosinophils % (0.00-5.0) % Basophils % (0.0-0.4) % Absolute Granulocytes (1.4-6.9) Basophils # (0-0.4) D-Dimer 413 (215-500) ng/mL Puncture Site pCO2 (35-45) mmHg pO2 (75-100) mmHg Base Excess (-2.0-2.0) O2 Saturation (94-100) g/dF ABG pH (7.35-7.45) ABG HCO3 (22-28) ABG O2 Sat (Measured) (95-100) % [place] Test A-a Gradient a/A Ratio Hemoglobin Carboxyhemoglobin (0.0-6.9) % THgb Methemoglobin (1.4-1.5) % Potassium (3.5-5.1) Temperature C POC O2 Flow Rate % Inspiratory BiPAP Expiratory BiPAP Sodium (137-145) mmol/L Chloride (98-107) mmol/L Carbon Dioxide (22-30) mmol/L Anion Gap (5-15) MEQ/L BUN (9-20) mg/dL Creatinine (0.66-1.25) mg/dL Estimated GFR ML/MIN Glucose (74-106) mg/dL Lactic Acid (0.4-2.0) Calcium (8.4-10.2) mg/dL Magnesium (1.6-2.3) mg/dL Total Bilirubin (0.2-1.3) mg/dL AST (17-59) U/L ALT (0-50) U/L Alkaline Phosphatase (38-126) U/L Troponin I 0.013 (0.000-0.034) ng/mL NT-Pro-B Natriuret Pep (0-900) pg/mL Serum Total Protein (6.3-8.2) g/dL Albumin (3.5-5.0) g/dL Urine Color (YELLOW) Urine Appearance (CLEAR) Urine pH (5-6) Ur Specific [place] (1.005-1.025) Urine Protein (Negative) Urine Ketones (NEGATIVE) Urine Blood (0-5) Donaldo/ul Urine Nitrite (NEGATIVE) Urine Bilirubin (NEGATIVE) Urine Urobilinogen (0-1) mg/dL Ur Leukocyte Esterase (NEGATIVE) Urine WBC (Auto) (0-5) /HPF Urine RBC (Auto) (0-2) /HPF U Epithel Cells (Auto) (FEW) /HPF Urine Bacteria (Auto) (NEGATIVE) /HPF Urine Mucus (Auto) (NEGATIVE) /HPF Urine Culture Reflexed (NO) Urine Glucose (NEGATIVE) mg/dL Influenza Type A Ag NEGATIVE (NEGATIVE) Influenza Type B Ag NEGATIVE (NEGATIVE) RSV (PCR) NEGATIVE (Negative) SARS-CoV-2 (PCR) NEGATIVE (NEGATIVE) 11/29/21 11/29/21 11/29/21 Range/Units 04:43 07:45 09:58 WBC (4.0-10.5) K/mm3 RBC (4.1-5.6) M/mm3 Hgb (12.5-18.0) gm/dl Hct (42-50) % MCV (78-100) fl MCH (26-32) pg MCHC (32-36) g/dl RDW (11.5-14.0) % Plt Count (150-450) K/mm3 MPV (7.5-11.0) fl Gran % (36.0-66.0) % Eos # (Auto) (0-0.5) Absolute Lymphs (auto) (1.0-4.6) Absolute Monos (auto) (0.0-1.3) Lymphocytes % (24.0-44.0) % Monocytes % (0.0-12.0) % Eosinophils % (0.00-5.0) % Basophils % (0.0-0.4) % Absolute Granulocytes (1.4-6.9) Basophils # (0-0.4) D-Dimer (215-500) ng/mL Puncture Site pCO2 (35-45) mmHg pO2 (75-100) mmHg Base Excess (-2.0-2.0) O2 Saturation (94-100) g/dF ABG pH (7.35-7.45) ABG HCO3 (22-28) ABG O2 Sat (Measured) (95-100) % [place] Test A-a Gradient a/A Ratio Hemoglobin Carboxyhemoglobin (0.0-6.9) % THgb Methemoglobin (1.4-1.5) % Potassium (3.5-5.1) Temperature C POC O2 Flow Rate % Inspiratory BiPAP Expiratory BiPAP Sodium (137-145) mmol/L Chloride (98-107) mmol/L Carbon Dioxide (22-30) mmol/L Anion Gap (5-15) MEQ/L BUN (9-20) mg/dL Creatinine (0.66-1.25) mg/dL Estimated GFR ML/MIN Glucose (74-106) mg/dL Lactic Acid (0.4-2.0) Calcium (8.4-10.2) mg/dL Magnesium (1.6-2.3) mg/dL Total Bilirubin (0.2-1.3) mg/dL AST (17-59) U/L ALT (0-50) U/L Alkaline Phosphatase (38-126) U/L Troponin I 0.087 H* 0.078 H* (0.000-0.034) ng/mL NT-Pro-B Natriuret Pep (0-900) pg/mL Serum Total Protein (6.3-8.2) g/dL Albumin (3.5-5.0) g/dL Urine Color YELLOW (YELLOW) Urine Appearance CLEAR (CLEAR) Urine pH 6.0 (5-6) Ur Specific [place] 1.018 (1.005-1.025) Urine Protein 30 (Negative) Urine Ketones NEGATIVE (NEGATIVE) Urine Blood SMALL (0-5) Donaldo/ul Urine Nitrite NEGATIVE (NEGATIVE) Urine Bilirubin NEGATIVE (NEGATIVE) Urine Urobilinogen NEGATIVE (0-1) mg/dL Ur Leukocyte Esterase NEGATIVE (NEGATIVE) Urine WBC (Auto) 3-5 (0-5) /HPF Urine RBC (Auto) 6-10 (0-2) /HPF U Epithel Cells (Auto) NONE (FEW) /HPF Urine Bacteria (Auto) RARE (NEGATIVE) /HPF Urine Mucus (Auto) SLIGHT (NEGATIVE) /HPF Urine Culture Reflexed YES (NO) Urine Glucose NEGATIVE (NEGATIVE) mg/dL Influenza Type A Ag (NEGATIVE) Influenza Type B Ag (NEGATIVE) RSV (PCR) (Negative) SARS-CoV-2 (PCR) (NEGATIVE) 11/29/21 Range/Units 10:45 WBC (4.0-10.5) K/mm3 RBC (4.1-5.6) M/mm3 Hgb (12.5-18.0) gm/dl Hct (42-50) % MCV (78-100) fl MCH (26-32) pg MCHC (32-36) g/dl RDW (11.5-14.0) % Plt Count (150-450) K/mm3 MPV (7.5-11.0) fl Gran % (36.0-66.0) % Eos # (Auto) (0-0.5) Absolute Lymphs (auto) (1.0-4.6) Absolute Monos (auto) (0.0-1.3) Lymphocytes % (24.0-44.0) % Monocytes % (0.0-12.0) % Eosinophils % (0.00-5.0) % Basophils % (0.0-0.4) % Absolute Granulocytes (1.4-6.9) Basophils # (0-0.4) D-Dimer (215-500) ng/mL Puncture Site pCO2 (35-45) mmHg pO2 (75-100) mmHg Base Excess (-2.0-2.0) O2 Saturation (94-100) g/dF ABG pH (7.35-7.45) ABG HCO3 (22-28) ABG O2 Sat (Measured) (95-100) % [place] Test A-a Gradient a/A Ratio Hemoglobin Carboxyhemoglobin (0.0-6.9) % THgb Methemoglobin (1.4-1.5) % Potassium (3.5-5.1) Temperature C POC O2 Flow Rate % Inspiratory BiPAP Expiratory BiPAP Sodium (137-145) mmol/L Chloride (98-107) mmol/L Carbon Dioxide (22-30) mmol/L Anion Gap (5-15) MEQ/L BUN (9-20) mg/dL Creatinine (0.66-1.25) mg/dL Estimated GFR ML/MIN Glucose (74-106) mg/dL Lactic Acid (0.4-2.0) Calcium (8.4-10.2) mg/dL Magnesium (1.6-2.3) mg/dL Total Bilirubin (0.2-1.3) mg/dL AST (17-59) U/L ALT (0-50) U/L Alkaline Phosphatase (38-126) U/L Troponin I 0.050 H* (0.000-0.034) ng/mL NT-Pro-B Natriuret Pep (0-900) pg/mL Serum Total Protein (6.3-8.2) g/dL Albumin (3.5-5.0) g/dL Urine Color (YELLOW) Urine Appearance (CLEAR) Urine pH (5-6) Ur Specific [place] (1.005-1.025) Urine Protein (Negative) Urine Ketones (NEGATIVE) Urine Blood (0-5) Donaldo/ul Urine Nitrite (NEGATIVE) Urine Bilirubin (NEGATIVE) Urine Urobilinogen (0-1) mg/dL Ur Leukocyte Esterase (NEGATIVE) Urine WBC (Auto) (0-5) /HPF Urine RBC (Auto) (0-2) /HPF U Epithel Cells (Auto) (FEW) /HPF Urine Bacteria (Auto) (NEGATIVE) /HPF Urine Mucus (Auto) (NEGATIVE) /HPF Urine Culture Reflexed (NO) Urine Glucose (NEGATIVE) mg/dL Influenza Type A Ag (NEGATIVE) Influenza Type B Ag (NEGATIVE) RSV (PCR) (Negative) SARS-CoV-2 (PCR) (NEGATIVE) - Radiology Impressions Radiology Exams & Impressions: Radiology Procedures Category Date Time Status CHEST 1 VIEW (PORTABLE) Stat Exams 11/29/21 01:30 Completed - Other Procedures and Tests Respiratory Therapy 11/29/21 04:39 Oxygen Nasal Cannula 4 lpm 11/29/21 05:29 Smoking Cessation Education ONCE 11/29/21 05:41 Respiratory Therapy Assessment DAILY Assessment/Plan (1) COPD with acute exacerbation Current Visit: Yes Status: Acute Assessment & Plan: on IV steroids and IV antibiotics (rocephin and zithromax). Code(s): J44.1 - CHRONIC OBSTRUCTIVE PULMONARY DISEASE W (ACUTE) EXACERBATION (2) Chronic hypoxemic respiratory failure Current Visit: Yes Status: Chronic Assessment & Plan: Will do overnight pulse ox. Pt does not wear O2 on a regular basis at home. (3) Muscle cramp Current Visit: Yes Status: Chronic Assessment & Plan: check Mg level. Code(s): R25.2 - CRAMP AND SPASM (4) Obstructive sleep apnea Current Visit: Yes Status: Chronic Assessment & Plan: Does not wear CPAP at home, was not able to wear enough to satisfy insurance, but should likely be wearing it here when he sleeps. Code(s): G47.33 - OBSTRUCTIVE SLEEP APNEA (ADULT) (PEDIATRIC) (5) Tobacco abuse Current Visit: Yes Status: Chronic Assessment & Plan: on nicotine patch here. With his lung issues, he MUST stop smoking. Code(s): Z72.0 - TOBACCO USE (6) DVT prophylaxis Current Visit: Yes Status: Acute Assessment & Plan: on Lovenox 40mg SQ daily. Code(s): Z29.9 - ENCOUNTER FOR PROPHYLACTIC MEASURES, UNSPECIFIED
[2021-11-29] MEDS: THEOPHYLLINE ER 24HR PO SCH (21:01)
[2021-11-29] MEDS: Zithromax 500 MG/ 250 ML NaCl Premix 500 MG/250 ML IVPB IV SCH (21:35)
[2021-11-29] MEDS ORDERED: THEOPHYLLINE ANHYDROUS 300 MG PO SCH (22:00)
[2021-11-29] MEDS ORDERED: ROCEPHIN 1 Gm-D5w 50 ml Bag** 1 G/50 ML IVPB IV SCH (22:00)
[2021-11-29] MEDS ORDERED: Sodium Chloride 100ML MINI-BAG PLUS 100 ML IV ONE (23:44)
[2021-11-29] MEDS ORDERED: Zosyn 3.375 GM Vial IV ONE (23:44)
[2021-11-29] MEDS: Zosyn 3.375 GM Vial 3.375 GM in Sodium Chloride 100ML MINI-BAG PLUS 100 ML IV SCH (23:52)
[2021-11-30] MEDS: DUONEB 0.5-3 MG/3 ml Neb IH SCH ×7 (00:28→23:07)
[2021-11-30 05:22] LABS: Basophil (Absolute #) 0.01 (0-0.4); Eosinophil (Absolute #) 0 (0-0.5); Hematocrit 41.9 % (42-50); Hemoglobin 13.7 gm/dl (12.5-18.0); Lymphocyte (Absolute #) 0.68 (1.0-4.6); Lymphocytes % 7.8 % (24.0-44.0); Mean Cell Volume 92.5 fl (78-100); Mean Corpuscular Hemoglobin 30.2 pg (26-32); Mean Corpuscular Hgb Concent. 32.7 g/dl (32-36); Mean Platelet Volume 11.1 fl (7.5-11.0); Monocyte (Absolute #) 0.47 (0.0-1.3); Monocytes % 5.4 % (0.0-12.0); Neutrophil % 86.7 % (36.0-66.0); Platelet Count 183 K/mm3 (150-450); Red Blood Count 4.53 M/mm3 (4.1-5.6); White Blood Count 8.8 K/mm3 (4.0-10.5)
[2021-11-30] MEDS ORDERED: Sodium Chloride 100ML MINI-BAG PLUS 100 ML IV ONE (05:26)
[2021-11-30] MEDS ORDERED: Zosyn 3.375 GM Vial IV ONE (05:26)
[2021-11-30] MEDS: Zosyn 3.375 GM Vial 3.375 GM in Sodium Chloride 100ML MINI-BAG PLUS 100 ML IV SCH ×4 (05:38→23:40)
[2021-11-30] MEDS: solu-MEDROL IV SCH ×3 (05:38→21:19)
[2021-11-30 05:54] LABS: ALBUMIN 4.1 g/dL (3.5-5.0); ALKALINE PHOSPHATASE 59 U/L (38-126); ANION GAP 10.7 MEQ/L (5-15); BLOOD UREA NITROGEN 15 mg/dL (9-20); CHLORIDE 106 mmol/L (98-107); Calcium 8.8 mg/dL (8.4-10.2); Carbon Dioxide 23 mmol/L (22-30); Creatinine 1 0.86 mg/dL (0.66-1.25); EST GLOMERULAR FILTRATION RATE > 60.0 ML/MIN; Glucose 139 mg/dL (74-106); SGOT/AST 25 U/L (17-59); SGPT/ALT 27 U/L (0-50); SODIUM 136 mmol/L (137-145); Total Protein 6.8 g/dL (6.3-8.2)
[2021-11-30] MEDS: Advair Hfa 115/21 Common canister IH SCH ×2 (06:49→18:59)
[2021-11-30] MEDS: ENOXAPARIN SODIUM SQ SCH (07:58)
[2021-11-30] MEDS: PROTONIX 40 MG IV IV SCH (07:58)
[2021-11-30] MEDS: Nicoderm CQ 21 MG TOP SCH (08:00)
--- NOTE | 2021-11-30 08:23 | PCM.NOTE ---
Date and Time: 11/30/21817 Subjective Assessment: Last night pt had + blood culture for GPC. Abx changed from rocephin and zithromax to zosyn (continue zithromax). He is feeling better today. Would really like to smoke! Does have nicotine patch. Has quit with chantix in the past then insurance would'nt cover it. Took wellbutrin which did not work. On room air since midnight. - Review of Systems Constitutional: No Fever Respiratory: Short Of Breath Objective Exam General Appearance: no apparent distress, alert Neurologic Exam: oriented x 3, cooperative Skin Exam: normal color, warm, dry, No rash Eye Exam: eyes nml inspection Ears, Nose, Throat Exam: moist mucous membranes Neck Exam: normal inspection Respiratory Exam: diminished breath sounds (fair air exchange), wheezing (faint scattered), No crackles/rales, No rhonchi Cardiovascular Exam: regular rate/rhythm, normal heart sounds, No murmur Extremity Exam: normal inspection, No pedal edema, No swelling OBJECTIVE DATA Vital Signs: Vital Signs - 24 hr Temp Pulse Resp BP BP Pulse Ox 11/30/21 06:51 86 22 92 L 11/30/21 04:00 96.1 F 78 16 88/54 95 11/30/21 03:39 93 H 20 92 L 11/30/21 00:28 75 20 91 L 11/30/21 00:00 96.0 F 73 20 89/53 94 L 11/29/21 20:00 97.4 F 83 19 105/57 94 L 11/29/21 19:04 91 H 21 93 L 11/29/21 16:00 98.3 F 88 17 95/59 95 11/29/21 14:45 93 L 11/29/21 12:00 98.0 F 99 H 18 103/62 93 L 11/29/21 11:52 97 Pain Assessment - Last Documented Pain Intensity 4 Pain Scale Used 0-10 Pain Scale Intake and Output: Intake & Output 11/27/21 11/28/21 11/29/21 11/30/21 11:59 11:59 11:59 11:59 Intake Total 300 2150 Output Total 375 Balance -75 2150 Weight 89.3 kg Lab Results: Lab Results-Last 24 Hours 01/09/22 01/09/22 01/09/22 Range/Units 07:45 09:58 10:45 WBC (4.0-10.5) K/mm3 RBC (4.1-5.6) M/mm3 Hgb (12.5-18.0) gm/dl Hct (42-50) % MCV (78-100) fl MCH (26-32) pg MCHC (32-36) g/dl RDW (11.5-14.0) % Plt Count (150-450) K/mm3 MPV (7.5-11.0) fl Gran % (36.0-66.0) % Eos # (Auto) (0-0.5) Absolute Lymphs (auto) (1.0-4.6) Absolute Monos (auto) (0.0-1.3) Lymphocytes % (24.0-44.0) % Monocytes % (0.0-12.0) % Eosinophils % (0.00-5.0) % Basophils % (0.0-0.4) % Absolute Granulocytes (1.4-6.9) Basophils # (0-0.4) Sodium (137-145) mmol/L Potassium (3.5-5.1) mmol/L Chloride (98-107) mmol/L Carbon Dioxide (22-30) mmol/L Anion Gap (5-15) MEQ/L BUN (9-20) mg/dL Creatinine (0.66-1.25) mg/dL Estimated GFR ML/MIN Glucose (74-106) mg/dL Calcium (8.4-10.2) mg/dL Magnesium (1.6-2.3) mg/dL Total Bilirubin (0.2-1.3) mg/dL AST (17-59) U/L ALT (0-50) U/L Alkaline Phosphatase (38-126) U/L Troponin I 0.078 H* 0.050 H* (0.000-0.034) ng/mL Serum Total Protein (6.3-8.2) g/dL Albumin (3.5-5.0) g/dL Urine Color YELLOW (YELLOW) Urine Appearance CLEAR (CLEAR) Urine pH 6.0 (5-6) Ur Specific [place] 1.018 (1.005-1.025) Urine Protein 30 (Negative) Urine Ketones NEGATIVE (NEGATIVE) Urine Blood SMALL (0-5) Donaldo/ul Urine Nitrite NEGATIVE (NEGATIVE) Urine Bilirubin NEGATIVE (NEGATIVE) Urine Urobilinogen NEGATIVE (0-1) mg/dL Ur Leukocyte Esterase NEGATIVE (NEGATIVE) Urine WBC (Auto) 3-5 (0-5) /HPF Urine RBC (Auto) 6-10 (0-2) /HPF U Epithel Cells (Auto) NONE (FEW) /HPF Urine Bacteria (Auto) RARE (NEGATIVE) /HPF Urine Mucus (Auto) SLIGHT (NEGATIVE) /HPF Urine Culture Reflexed YES (NO) Urine Glucose NEGATIVE (NEGATIVE) mg/dL Theophylline (10-20) ug/mL 11/29/21 11/29/21 11/30/21 Range/Units 13:39 13:39 04:50 WBC 8.8 (4.0-10.5) K/mm3 RBC 4.53 (4.1-5.6) M/mm3 Hgb 13.7 (12.5-18.0) gm/dl Hct 41.9 L (42-50) % MCV 92.5 (78-100) fl MCH 30.2 (26-32) pg MCHC 32.7 (32-36) g/dl RDW 14.0 (11.5-14.0) % Plt Count 183 (150-450) K/mm3 MPV 11.1 H (7.5-11.0) fl Gran % 86.7 H (36.0-66.0) % Eos # (Auto) 0 (0-0.5) Absolute Lymphs (auto) 0.68 L (1.0-4.6) Absolute Monos (auto) 0.47 (0.0-1.3) Lymphocytes % 7.8 L (24.0-44.0) % Monocytes % 5.4 (0.0-12.0) % Eosinophils % 0.0 (0.00-5.0) % Basophils % 0.1 (0.0-0.4) % Absolute Granulocytes 7.60 H (1.4-6.9) Basophils # 0.01 (0-0.4) Sodium (137-145) mmol/L Potassium (3.5-5.1) mmol/L Chloride (98-107) mmol/L Carbon Dioxide (22-30) mmol/L Anion Gap (5-15) MEQ/L BUN (9-20) mg/dL Creatinine (0.66-1.25) mg/dL Estimated GFR ML/MIN Glucose (74-106) mg/dL Calcium (8.4-10.2) mg/dL Magnesium 2.0 (1.6-2.3) mg/dL Total Bilirubin (0.2-1.3) mg/dL AST (17-59) U/L ALT (0-50) U/L Alkaline Phosphatase (38-126) U/L Troponin I 0.036 H* (0.000-0.034) ng/mL Serum Total Protein (6.3-8.2) g/dL Albumin (3.5-5.0) g/dL Urine Color (YELLOW) Urine Appearance (CLEAR) Urine pH (5-6) Ur Specific [place] (1.005-1.025) Urine Protein (Negative) Urine Ketones (NEGATIVE) Urine Blood (0-5) Donaldo/ul Urine Nitrite (NEGATIVE) Urine Bilirubin (NEGATIVE) Urine Urobilinogen (0-1) mg/dL Ur Leukocyte Esterase (NEGATIVE) Urine WBC (Auto) (0-5) /HPF Urine RBC (Auto) (0-2) /HPF U Epithel Cells (Auto) (FEW) /HPF Urine Bacteria (Auto) (NEGATIVE) /HPF Urine Mucus (Auto) (NEGATIVE) /HPF Urine Culture Reflexed (NO) Urine Glucose (NEGATIVE) mg/dL Theophylline (10-20) ug/mL 11/30/21 11/30/21 Range/Units 04:50 04:50 WBC (4.0-10.5) K/mm3 RBC (4.1-5.6) M/mm3 Hgb (12.5-18.0) gm/dl Hct (42-50) % MCV (78-100) fl MCH (26-32) pg MCHC (32-36) g/dl RDW (11.5-14.0) % Plt Count (150-450) K/mm3 MPV (7.5-11.0) fl Gran % (36.0-66.0) % Eos # (Auto) (0-0.5) Absolute Lymphs (auto) (1.0-4.6) Absolute Monos (auto) (0.0-1.3) Lymphocytes % (24.0-44.0) % Monocytes % (0.0-12.0) % Eosinophils % (0.00-5.0) % Basophils % (0.0-0.4) % Absolute Granulocytes (1.4-6.9) Basophils # (0-0.4) Sodium 136 L (137-145) mmol/L Potassium 4.0 (3.5-5.1) mmol/L Chloride 106 (98-107) mmol/L Carbon Dioxide 23 (22-30) mmol/L Anion Gap 10.7 (5-15) MEQ/L BUN 15 (9-20) mg/dL Creatinine 0.86 (0.66-1.25) mg/dL Estimated GFR > 60.0 ML/MIN Glucose 139 H (74-106) mg/dL Calcium 8.8 (8.4-10.2) mg/dL Magnesium (1.6-2.3) mg/dL Total Bilirubin 0.30 (0.2-1.3) mg/dL AST 25 (17-59) U/L ALT 27 (0-50) U/L Alkaline Phosphatase 59 (38-126) U/L Troponin I (0.000-0.034) ng/mL Serum Total Protein 6.8 (6.3-8.2) g/dL Albumin 4.1 (3.5-5.0) g/dL Urine Color (YELLOW) Urine Appearance (CLEAR) Urine pH (5-6) Ur Specific [place] (1.005-1.025) Urine Protein (Negative) Urine Ketones (NEGATIVE) Urine Blood (0-5) Donaldo/ul Urine Nitrite (NEGATIVE) Urine Bilirubin (NEGATIVE) Urine Urobilinogen (0-1) mg/dL Ur Leukocyte Esterase (NEGATIVE) Urine WBC (Auto) (0-5) /HPF Urine RBC (Auto) (0-2) /HPF U Epithel Cells (Auto) (FEW) /HPF Urine Bacteria (Auto) (NEGATIVE) /HPF Urine Mucus (Auto) (NEGATIVE) /HPF Urine Culture Reflexed (NO) Urine Glucose (NEGATIVE) mg/dL Theophylline 7.0 L (10-20) ug/mL Radiology Exams: Radiology Procedures Category Date Time Status CHEST 1 VIEW (PORTABLE) Stat Exams 11/29/21 01:30 Completed Assessment/Plan (1) COPD with acute exacerbation Current Visit: Yes Status: Acute Assessment & Plan: Doing much better. On zithromax day #2 and zosyn day #1 (finished 1d rocephin prior to this). Since he is now on room air, I have decreased his steroid from solumedrol 80mg IV q6h to 60mg IV q8h. Code(s): J44.1 - CHRONIC OBSTRUCTIVE PULMONARY DISEASE W (ACUTE) EXACERBATION (2) Positive blood culture Current Visit: Yes Status: Acute Assessment & Plan: will need to stay until results are final - on zosyn. Code(s): R78.81 - BACTEREMIA (3) Chronic hypoxemic respiratory failure Current Visit: Yes Status: Chronic Assessment & Plan: Needs overnight pulse ox study, has O2 at home but rarely uses (4) Muscle cramp Current Visit: Yes Status: Chronic Code(s): R25.2 - CRAMP AND SPASM (5) Obstructive sleep apnea Current Visit: Yes Status: Chronic Code(s): G47.33 - OBSTRUCTIVE SLEEP APNEA (ADULT) (PEDIATRIC) (6) Tobacco abuse Current Visit: Yes Status: Chronic Assessment & Plan: Will need rx for chantix when he is discharged. Ativan prn for anxiety. Code(s): Z72.0 - TOBACCO USE (7) DVT prophylaxis Current Visit: Yes Status: Acute Assessment & Plan: lovenox 40mg SQ daily. Code(s): Z29.9 - ENCOUNTER FOR PROPHYLACTIC MEASURES, UNSPECIFIED
[2021-11-30] MEDS ORDERED: solu-MEDROL IV SCH (08:30)
[2021-11-30] MEDS: Ativan 0.5 MG PO PRN ×2 (08:49→13:29)
[2021-11-30] MEDS: THEOPHYLLINE ER 24HR PO SCH ×2 (08:50→21:19)
[2021-11-30] MEDS: Coreg 3.125 MG PO SCH ×2 (08:55→21:19)
[2021-11-30] MEDS: Cozaar 50 MG PO SCH (09:25)
[2021-11-30] MEDS ORDERED: NON-FORMULARY ITEM (Losartan Potassium [Cozaar] 25 MG Tablet) PO SCH (10:00)
[2021-11-30] MEDS: MOTRIN 400 MG PO PRN ×2 (13:35→21:21)
[2021-11-30] MEDS ORDERED: Singulair 10 MG PO SCH (18:00)
[2021-11-30] MEDS: Zithromax 500 MG/ 250 ML NaCl Premix 500 MG/250 ML IVPB IV SCH (21:19)
[2021-12-01] MEDS: solu-MEDROL IV SCH (05:03)
[2021-12-01] MEDS: Zosyn 3.375 GM Vial 3.375 GM in Sodium Chloride 100ML MINI-BAG PLUS 100 ML IV SCH (05:03)
[2021-12-01] MEDS: Advair Hfa 115/21 Common canister IH SCH (06:05)
[2021-12-01] MEDS: DUONEB 0.5-3 MG/3 ml Neb IH SCH ×2 (06:05)
--- NOTE | 2021-12-01 08:55 | PCM.DS ---
Discharge Summary Date of Admission: 11/29/21 04:32 Admitting Physician: LAURA WILKINSON Primary Care Provider: CATINA FERNANDES Allergies Allergies No Known Drug Allergies Allergy (Verified 11/29/21 05:31) Hospital Summary - Hospital Course Hospital Course: Pt is 51 yo male pt of Dr. Fernandes with COPD and TOB abuse who was admitted through ER with COPD exacerbation, started on IV rocephin and zithromax. CXR nonacute. Initially he was placed on bipap, but improved rapidly with IV steroids (initially given by EMS). The next day his blood culture had preliminary positive of gram pos cocci so his IV antibiotics were changed to zosyn and zithromax. The final culture today is coag neg staph in 1 bottle (and the other bottle is neg) so pt will be sent home on treatment for his COPD exacerbation only. He is breathing well, misty po well, no complaints. Would like chantix in order to stop smoking. Will discharge to home on chantix, augmentin, and prednisone. F/u with PCP in 1 week. - Vitals & Intake/Output Vital Signs: Vital Signs Temperature 97.2 F 12/01/21 04:00 Pulse Rate 66 12/01/21 06:05 Respiratory Rate 22 12/01/21 06:05 Blood Pressure 107/60 12/01/21 04:00 O2 Sat by Pulse Oximetry 94 L 12/01/21 06:05 Intake & Output: Intake & Output 11/28/21 11/29/21 11/30/21 12/01/21 11:59 11:59 11:59 11:59 Intake Total 300 2570 1020 Output Total 375 Balance -75 2570 1020 Weight 89.3 kg 89.6 kg 91 kg - Lab Result Diagrams: 11/30/21 04:50 11/30/21 04:50 Micro Results-Entire Visit: Microbiology 11/29/21 01:55 Blood Culture Gram Stain - Final Blood Blood Culture - Preliminary Coagulase Negative Staph. Possible Contaminant. Clinical judgement required. NO FURTHER WORKUP WILL BE PERFORMED UNLESS PHYSICIAN REQUESTED WITHIN THE NEXT 72 HOURS 11/29/21 01:55 Blood Culture - Preliminary Blood NO GROWTH TO DATE 11/29/21 09:58 Urine Culture - Preliminary Urine, Void NO GROWTH TO DATE - Procedures and Test Procedures and Tests throughout Hospitalization: Therapy Orders & Screens 11/29/21 01:30 BiPap/CPAP STAT Comment: 11/29/21 04:39 Oxygen Nasal Cannula 4 lpm Comment: 11/29/21 05:29 Smoking Cessation Education ONCE Comment: Diagnosis: COPD Exacerbation Smoking Status: Current every day smoker How long have you smoked: 30+ years Have you smoked in the past 12 months: Yes Approximately how many cigarettes per day: 1/2 pack Do you dip or chew tobacco: No 11/29/21 05:39 Respiratory MDI BID Comment: Diagnosis: COPD Exacerbation 11/29/21 05:41 Respiratory Therapy Assessment DAILY Comment: Diagnosis: COPD Exacerbation 11/29/21 05:47 EKG ROUTINE Comment: Diagnosis: COPD Exacerbation Discharge Exam General Appearance: no apparent distress, alert Neurologic Exam: oriented x 3, cooperative Eye Exam: eyes nml inspection Ears, Nose, Throat Exam: moist mucous membranes Neck Exam: normal inspection Respiratory Exam: diminished breath sounds (fair air exchange), No crackles/ra les, No rhonchi, No wheezing Cardiovascular Exam: regular rate/rhythm, normal heart sounds, No murmur Extremity Exam: normal inspection, No pedal edema, No swelling Final Diagnosis/Problem List - Final Discharge Diagnosis/Problem (1) COPD with acute exacerbation Current Visit: Yes Status: Acute Assessment & Plan: improved; home on po augmentin x 7d and prednisone po. F/u with PCP in 1 week. Code(s): J44.1 - CHRONIC OBSTRUCTIVE PULMONARY DISEASE W (ACUTE) EXACERBATION (2) Positive blood culture Current Visit: Yes Status: Resolved Assessment & Plan: Coag neg staph, likely contaminant. Code(s): R78.81 - BACTEREMIA (3) Chronic hypoxemic respiratory failure Current Visit: Yes Status: Chronic Assessment & Plan: His overnight pulse ox on room air with O2 sat <90% only for 9 minutes - does not need O2 at night. (4) Muscle cramp Current Visit: Yes Status: Chronic Code(s): R25.2 - CRAMP AND SPASM (5) Obstructive sleep apnea Current Visit: Yes Status: Chronic Code(s): G47.33 - OBSTRUCTIVE SLEEP APNEA (ADULT) (PEDIATRIC) (6) Tobacco abuse Current Visit: Yes Status: Chronic Assessment & Plan: home on chantix. Code(s): Z72.0 - TOBACCO USE (7) DVT prophylaxis Current Visit: Yes Status: Acute Code(s): Z29.9 - ENCOUNTER FOR PROPHYLACTIC MEASURES, UNSPECIFIED - Discharge Disposition: Home, Self-Care Condition: Good Prescriptions: New Amox Tr/Potass Clav. 875 mg [Augmentin 875-125 Tablet] 875 mg PO BID #14 tablet Prednisone 20 mg [Deltasone 20 mg] 20 mg PO DAILY #17 tablet L. Acidophilus/L.bulgaricus [Lactobacillus Tablet] 1 each PO BID #14 tablet Varenicline Tartrate 0.5 mg PO DAILY #11 tablet Varenicline Tartrate 1 mg PO BID #60 tablet Continue Albuterol/Ipratropium 3ml Neb* [DUONEB 0.5-3 MG/3 ml Neb] 3 ml IH QID Losartan Potassium [Cozaar] 25 mg PO DAILY Theophylline Anhydrous 300 mg* [Theodur 300MG] 300 mg PO BID Montelukast Sodium 10 mg [Singulair 10 MG] 10 mg PO DAILY Albuterol Sulfate [Albuterol Sulfate Hfa] 8.5 gm IH QID Carvedilol 3.125 mg [Coreg 3.125 MG] 3.125 mg PO BID Budesonide/Glycopyr/Formoterol [Breztri Aerosphere Inhaler] 2 puffs IH BID Follow up with: CATINA FERNANDES MD [Primary Care Provider] -
[2021-12-01] MEDS: PROTONIX 40 MG IV IV SCH (09:44)
[2021-12-01] MEDS: Cozaar 50 MG PO SCH (09:44)
[2021-12-01] MEDS: Nicoderm CQ 21 MG TOP SCH (09:45)
[2021-12-01] MEDS: ENOXAPARIN SODIUM SQ SCH (09:45)
[2021-12-01] MEDS: THEOPHYLLINE ER 24HR PO SCH (09:46)
[2021-12-01] MEDS: Coreg 3.125 MG PO SCH (09:46)
[2021-12-01 12:17] VITALS: BP 115/58; PULSE 77; O2SAT 95
== END 2021-12-01 12:30 | disposition home or self-care (01) ==
LOC: ED 01:24 → MED SURG 04:32
PROVIDERS: ADMIT Family Medicine; ATTEND Family Medicine
DX: J44.1 Chronic obstructive pulmonary disease with (acute) exacerbation (principal); R78.81 Bacteremia; J96.11 Chronic respiratory failure with hypoxia; R25.2 Cramp and spasm; G47.33 Obstructive sleep apnea (adult) (pediatric); R77.8 Other specified abnormalities of plasma proteins; Z72.0 Tobacco use; Z29.9 Encounter for prophylactic measures, unspecified; Z79.899 Other long term (current) drug therapy; Z99.81 Dependence on supplemental oxygen; Z20.828 Contact with and (suspected) exposure to other viral communicable diseases
CPT/HCPCS: 0241U; 36000; 36415; 36600; 71045; 80053; 80198; 81001; 82375; 82803; 83605; 83735; 83880; 84484; 85025; 85379; 87040; 87086; 93005; 93041; 94002; 94640; 94760; 94762; 96360; 96374; 99285; 99291; G0378; J0456; J0696; J1650; J2060; J2920; J2930; J7609; A9270-GY

== ENCOUNTER 2023-06-13 11:35 | Observation (INO) | payer OTHER ==
[2023-06-13] MEDS ORDERED: Docusate Sodium 100 MG PO PRN ×2 (13:03→13:27)
[2023-06-13] MEDS ORDERED: Zofran 4 MG/2 ML VIAL IV PRN ×2 (13:03→13:27)
[2023-06-13] MEDS ORDERED: TYLENOL 325 MG PO PRN ×2 (13:03→13:27)
[2023-06-13] MEDS: DUONEB 0.5-3 MG/3 ml Neb IH SCH ×3 (13:45→23:22)
[2023-06-13 13:47] LABS: Absolute Neutrophil Ct (ANC) 2.01 x10^3/uL (1.4-6.9); BASOPHIL % 0.6 % (0.0-0.4); Basophil (Absolute #) 0.02 x10^3/uL (0-0.4); Eosinophil % 1.6 % (0.00-5.0); Eosinophil (Absolute #) 0.05 x10^3/uL (0-0.5); Hematocrit 47.1 % (42-50); Hemoglobin 15.4 g/dL (12.5-18.0); IMMATURE GRAN # 0.02 x10^3u/L (0.00-0.03); IMMATURE GRAN % 0.6 % (0.00-0.4); Lymphocyte (Absolute #) 0.69 x10^3/uL (1.0-4.6); Lymphocytes % 21.4 % (24.0-44.0); Mean Cell Volume 91.5 fL (78-100); Mean Corpuscular Hemoglobin 29.9 pg (26-32); Mean Corpuscular Hgb Concent. 32.7 g/dL (32-36); Mean Platelet Volume 10.3 fL (7.5-11.0); Monocyte (Absolute #) 0.43 x10^3/uL (0.0-1.3); Monocytes % 13.4 % (0.0-12.0); Neutrophil % 62.4 % (36.0-66.0); Platelet Count 152 x10^3/uL (150-450); Red Blood Count 5.15 x10^6/uL (4.1-5.6); Red Cell Distribution Width 12.9 % (11.5-14.0); White Blood Count 3.2 x10^3/uL (4.0-10.5)
[2023-06-13 13:56] LABS: ALBUMIN 4.6 g/dL (3.5-5.0); ALKALINE PHOSPHATASE 62 U/L (38-126); ANION GAP 14.3 MEQ/L (5-15); BLOOD UREA NITROGEN 11 mg/dL (9-20); CHLORIDE 102 mmol/L (98-107); Calcium 8.7 mg/dL (8.4-10.2); Carbon Dioxide 27 mmol/L (22-30); Creatinine 1 1.07 mg/dL (0.66-1.25); EST GLOMERULAR FILTRATION RATE > 60.0 ML/MIN; Glucose 115 mg/dL (74-106); Potassium 3.7 mmol/L (3.5-5.1); SGOT/AST 24 U/L (17-59); SGPT/ALT 23 U/L (0-50); SODIUM 139 mmol/L (137-145)
[2023-06-13] MEDS ORDERED: MEDICATION INTERVENTION MC SCH (14:00)
[2023-06-13 14:01] LABS: A-aADO2 48; ABG HEMOGLOBIN 14.8; ABG POTASSIUM 3.5 (3.5-5.1); ABG SITE RIGHT RADIAL; ALLEN TEST OK? YES; ARTERIAL BLOOD GAS BASE EXCESS 1.1 (-2.0-2.0); ARTERIAL BLOOD GAS FIO2 28 %; ARTERIAL BLOOD GAS PCO2 31 mmHg (35-45); ARTERIAL BLOOD GAS PO2 113 mmHg (75-100); ARTERIAL BLOOD GAS pH 7.49 (7.35-7.45); CARBOXYHEMOGLOBIN 1.9 % THgb (0.0-6.9); HCO3- 23.6 (22-28); HGB O2 SAT 98.1 g/dF (94-100)
--- NOTE | 2023-06-13 14:50 | XRAY ---
Indication: COPD exacerbation. Pneumonia. Comparison: December 31, 2021 PA/lateral chest unchanged again demonstrating COPD, scattered fibrosis/scarring, and right upper lobe calcified granuloma. Heart not enlarged. Bony thorax intact. No new/acute findings. Impression: Continued nonacute chest with chronic features.
[2023-06-13] MEDS: MERREM 500 MG in Sodium Chloride 100ML MINI-BAG PLUS 100 ML IV SCH ×2 (14:51→20:46)
[2023-06-13] MEDS: solu-MEDROL 40 MG, Sterile H2O 10 ml 1 ML IV SCH ×4 (14:51→20:44)
[2023-06-13] MEDS: TYLENOL 325 MG PO PRN ×2 (15:50→20:45)
--- NOTE | 2023-06-13 16:59 | PCM.HP ---
History of Present Illness - Chief Complaint Chief Complaint: COPD exacerbation Date: 06/13/23 History of Present Illness: is a 52 year old male, with a past history of CHF and KENYA, who was sent as a direct admission from the office of Dr. Amaya due to concern for COPD exacerbation and possible pneumonia. The patient presented to the clinic with a report of dyspnea, dry cough, and shortness of breath for 2 days. In the clinic he was noted to have poor air movement and diminished bibasilar breath sounds. The patient has had subjective fevers and measured his temperature to be 99 F but he denies chills or phlegm. He also denies localized chest pain but has had generalized, nonfocal total chest tightness. - Review of Systems Constitutional: Fever, Fatigue Eyes: No Symptoms Ears, Nose, & Throat: No Symptoms Respiratory: Cough, Short Of Breath, Wheezing Cardiac: No Symptoms Abdominal/Gastrointestinal: No Symptoms Genitourinary Symptoms: No Symptoms Musculoskeletal: No Symptoms Skin: No Symptoms Neurological: No Symptoms Psychological: No Symptoms Endocrine: No Symptoms Hematologic/Lymphatic: No Symptoms Medications & Allergies Home Medications: Home Medication List Albuterol/Ipratropium 3ml Neb* [DUONEB 0.5-3 MG/3 ml Neb] 3 ml IH QID PRN 03/14/17 [History Confirmed 06/13/23] Albuterol Sulfate [Albuterol Sulfate Hfa] 8.5 gm IH QID 11/29/21 [History Confirmed 06/13/23] Budesonide/Glycopyr/Formoterol [Breztri Aerosphere Inhaler] 2 puffs IH BID 11/29/21 [History Confirmed 06/13/23] Carvedilol 3.125 mg [Coreg 3.125 MG] 3.125 mg PO BID 11/29/21 [History Confirmed 06/13/23] Losartan Potassium [Cozaar] 12.5 mg PO DAILY 11/29/21 [History Confirmed ] Montelukast Sodium 10 mg [Singulair 10 MG] 10 mg PO HS 11/29/21 [History Confirmed 06/13/23] Theophylline Anhydrous 300 mg* [Theodur 300MG] 300 mg PO BID 11/29/21 [History Confirmed 06/13/23] PANTOPRAZOLE 40 mg Tablet [Protonix 40MG Tablet] 40 mg PO HS 06/13/23 [History Confirmed 06/13/23] Tamsulosin HCl 0.4 mg [Flomax 0.4 MG] 0.4 mg PO BID 06/13/23 [History Confirmed 06/13/23] Allergies/Adverse Reactions: Allergies Allergy/AdvReac Type Severity Reaction Status Date / Time No Known Drug Allergies Allergy Verified 11/29/21 05:31 - Past Medical History Past Medical History: Yes Neurological History: No Pertinent History ENT History: No Pertinent History Cardiac History: No Pertinent History, Other (Sees Dr. Sabillon and had a negative cardiac cath "a few years ago") Respiratory History: Bronchitis, COPD (follows with Dr. 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 - Past Surgical History Past Surgical History: Yes Neuro Surgical History: No Pertinent History Cardiac History: No Pertinent History Respiratory Surgery: No Pertinent History GI Surgical History: Appendectomy Genitourinary Surgical Hx: No Pertinent History Musculskeletal Surgical Hx: No Pertinent History Male Surgical History: No Pertinent History - Social History Smoking Status: Former smoker How long have you smoked: 30+ years Exposure to second hand smoke: Yes Alcohol: None Drug Use: none - Physical Exam Vital Signs: Vital Signs - 24 hr Temp Pulse Resp BP Pulse Ox 06/13/23 16:00 97.8 F 82 22 125/74 93 L 06/13/23 13:39 88 22 98 06/13/23 11:57 97.1 F 89 22 94/57 95 General Appearance: mild distress, alert Neurologic Exam: alert, oriented x 3, cooperative, 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, normal mood/affect, nml cerebellar function Eye Exam: PERRL/EOMI, eyes nml inspection Ears, Nose, Throat Exam: normal ENT inspection Neck Exam: normal inspection, non-tender, supple, full range of motion Respiratory Exam: wheezing, other (poor air movement) Cardiovascular Exam: regular rate/rhythm, normal heart sounds Gastrointestinal/Abdomen Exam: soft, normal bowel sounds Back Exam: normal inspection Extremity Exam: normal inspection, normal range of motion Skin Exam: normal color Results - Labs Lab/Micro Results: Lab Results-Last 24 Hours 06/13/23 06/13/23 06/13/23 Range/Units 13:21 13:21 13:45 WBC 3.2 L (4.0-10.5) x10^3/uL RBC 5.15 (4.1-5.6) x10^6/uL Hgb 15.4 (12.5-18.0) g/dL Hct 47.1 (42-50) % MCV 91.5 (78-100) fL MCH 29.9 (26-32) pg MCHC 32.7 (32-36) g/dL RDW 12.9 (11.5-14.0) % Plt Count 152 (150-450) x10^3/uL MPV 10.3 (7.5-11.0) fL Gran % 62.4 (36.0-66.0) % Immature Gran % (Auto) 0.6 H (0.00-0.4) % Nucleat RBC Rel Count 0.0 (0.00-0.1) % Eos # (Auto) 0.05 (0-0.5) x10^3/uL Immature Gran # (Auto) 0.02 (0.00-0.03) x10^3u/L Absolute Lymphs (auto) 0.69 L (1.0-4.6) x10^3/uL Absolute Monos (auto) 0.43 (0.0-1.3) x10^3/uL Absolute Nucleated RBC 0.00 (0.00-0.01) x10^3u/L Lymphocytes % 21.4 L (24.0-44.0) % Monocytes % 13.4 H (0.0-12.0) % Eosinophils % 1.6 (0.00-5.0) % Basophils % 0.6 (0.0-0.4) % Absolute Granulocytes 2.01 (1.4-6.9) x10^3/uL Basophils # 0.02 (0-0.4) x10^3/uL Puncture Site RIGHT RADIAL pCO2 31 L (35-45) mmHg pO2 113 H (75-100) mmHg Base Excess 1.1 (-2.0-2.0) O2 Saturation 98.1 (94-100) g/dF ABG pH 7.49 H (7.35-7.45) ABG HCO3 23.6 (22-28) ABG O2 Sat (Measured) 100.0 (95-100) % Edmar Test YES A-a Gradient 48 a/A Ratio 0.70 Hemoglobin 14.8 Carboxyhemoglobin 1.9 (0.0-6.9) % THgb Methemoglobin 0.0 L (1.4-1.5) % Temperature 37.0 C POC O2 Flow Rate 28 % Sodium 139 (137-145) mmol/L Potassium 3.7 3.5 (3.5-5.1) mmol/L Chloride 102 (98-107) mmol/L Carbon Dioxide 27 (22-30) mmol/L Anion Gap 14.3 (5-15) MEQ/L BUN 11 (9-20) mg/dL Creatinine 1.07 (0.66-1.25) mg/dL Estimated GFR > 60.0 ML/MIN Glucose 115 H (74-106) mg/dL Calcium 8.7 (8.4-10.2) mg/dL Total Bilirubin 0.50 (0.2-1.3) mg/dL AST 24 (17-59) U/L ALT 23 (0-50) U/L Alkaline Phosphatase 62 (38-126) U/L Serum Total Protein 8.0 (6.3-8.2) g/dL Albumin 4.6 (3.5-5.0) g/dL - Radiology Impressions Radiology Exams & Impressions: Radiology Procedures Category Date Time Status CHEST 2 VIEWS (PA AND LAT) Stat Exams 06/13/23 13:27 Completed - Other Procedures and Tests Respiratory Therapy 06/13/23 13:12 Respiratory Therapy Consult ROUTINE 06/13/23 13:27 Oxygen Nasal Cannula 2 lpm Assessment/Plan (1) COPD with acute exacerbation Current Visit: No Status: Acute Assessment & Plan: Nebs, steroids, antibiotics, oxygen. There was initial concern for pneumonia so the patient had been placed on empiric Merem, but this can be narrowed based on the lack of an acute infiltrate on CXR Code(s): J44.1 - CHRONIC OBSTRUCTIVE PULMONARY DISEASE W (ACUTE) EXACERBATION (2) Chronic hypoxemic respiratory failure Current Visit: No Status: Chronic Assessment & Plan: Not on oxygen at home. Monitor sats. (3) Obstructive sleep apnea Current Visit: No Status: Chronic Assessment & Plan: Continue current regimen. Code(s): G47.33 - OBSTRUCTIVE SLEEP APNEA (ADULT) (PEDIATRIC) Telemedicine Encounter - Telemedicine Encounter Telemedicine Encounter: The entirety of this encounter was performed via Telemedicine"
[2023-06-13] MEDS: Advair Hfa 115/21 Common canister IH SCH (19:19)
[2023-06-13 19:44] LABS: ADD URINE CULTURE? YES (NO); Appearance Clear (Clear); Bacteria None Seen /HPF (None Seen); Bilirubin Negative (Negative); Blood Negative (Negative); Epithelial Cells None Seen /HPF (None Seen); Glucose, Urine Negative (Negative); Hyaline Casts NONE SEEN /LPF (0-2); Ketones Trace (Negative); Leukocyte Esterase Negative (Negative); Nitrite Negative (Negative); Protein,Urine Dip Trace (Negative); Specific Gravity 1.025 (1.005-1.030); WBC 0-2 /HPF (0-5)
[2023-06-13] MEDS: Coreg 3.125 MG PO SCH (20:44)
[2023-06-13] MEDS: Protonix 40MG Tablet PO SCH (20:45)
[2023-06-13] MEDS: Singulair 10 MG PO SCH (20:45)
[2023-06-13] MEDS: Flomax 0.4 MG PO SCH (20:45)
[2023-06-13] MEDS: THEOPHYLLINE ER 24HR PO SCH (20:46)
[2023-06-13] MEDS ORDERED: NON-FORMULARY ITEM (Budesonide/Glycopyr/Formoterol [Breztri Aerosphere Inhaler] 10.7 GM Hf IH SCH (22:00)
[2023-06-13] MEDS ORDERED: THEOPHYLLINE ANHYDROUS 300 MG PO SCH (22:00)
[2023-06-14] MEDS: DUONEB 0.5-3 MG/3 ml Neb IH SCH ×6 (03:21→22:50)
[2023-06-14] MEDS: TYLENOL 325 MG PO PRN ×3 (03:49→21:36)
[2023-06-14 04:50] LABS: Absolute Neutrophil Ct (ANC) 2.76 x10^3/uL (1.4-6.9); BASOPHIL % 0.3 % (0.0-0.4); Basophil (Absolute #) 0.01 x10^3/uL (0-0.4); Eosinophil (Absolute #) 0 x10^3/uL (0-0.5); Hematocrit 45.3 % (42-50); Hemoglobin 15.3 g/dL (12.5-18.0); IMMATURE GRAN # 0.01 x10^3u/L (0.00-0.03); IMMATURE GRAN % 0.3 % (0.00-0.4); Lymphocyte (Absolute #) 0.53 x10^3/uL (1.0-4.6); Mean Cell Volume 89.2 fL (78-100); Mean Corpuscular Hemoglobin 30.1 pg (26-32); Mean Corpuscular Hgb Concent. 33.8 g/dL (32-36); Mean Platelet Volume 10.2 fL (7.5-11.0); Monocyte (Absolute #) 0.23 x10^3/uL (0.0-1.3); Monocytes % 6.5 % (0.0-12.0); Neutrophil % 77.9 % (36.0-66.0); Platelet Count 168 x10^3/uL (150-450); Red Blood Count 5.08 x10^6/uL (4.1-5.6); Red Cell Distribution Width 13.1 % (11.5-14.0); White Blood Count 3.5 x10^3/uL (4.0-10.5)
[2023-06-14 05:08] LABS: ANION GAP 14.4 MEQ/L (5-15); BLOOD UREA NITROGEN 13 mg/dL (9-20); CHLORIDE 103 mmol/L (98-107); Calcium 8.8 mg/dL (8.4-10.2); Carbon Dioxide 23 mmol/L (22-30); Creatinine 1 0.89 mg/dL (0.66-1.25); EST GLOMERULAR FILTRATION RATE > 60.0 ML/MIN; Glucose 133 mg/dL (74-106); Potassium 4.1 mmol/L (3.5-5.1); SODIUM 136 mmol/L (137-145)
[2023-06-14 05:27] LABS: Slide Review 1 YES
[2023-06-14] MEDS: MERREM 500 MG in Sodium Chloride 100ML MINI-BAG PLUS 100 ML IV SCH (05:57)
[2023-06-14] MEDS: solu-MEDROL 40 MG, Sterile H2O 10 ml 1 ML IV SCH ×6 (05:57→21:29)
[2023-06-14] MEDS: Advair Hfa 115/21 Common canister IH SCH ×2 (07:16→18:39)
[2023-06-14] MEDS: Cozaar 50 MG PO SCH (08:51)
[2023-06-14] MEDS: ENOXAPARIN SODIUM SQ SCH (08:51)
[2023-06-14] MEDS: Flomax 0.4 MG PO SCH ×2 (08:51→21:30)
[2023-06-14] MEDS: Coreg 3.125 MG PO SCH ×2 (08:51→21:30)
[2023-06-14] MEDS: THEOPHYLLINE ER 24HR PO SCH ×2 (08:52→21:30)
[2023-06-14] MEDS ORDERED: NON-FORMULARY ITEM (Losartan Potassium [Cozaar] 25 MG Tablet) PO SCH (10:00)
[2023-06-14] MEDS: ROCEPHIN 1 Gm-D5w 50 ml Bag** 1 G/50 ML IVPB IV SCH (12:51)
[2023-06-14] MEDS: Acidophilus TABLET PO SCH (12:51)
--- NOTE | 2023-06-14 13:34 | PCM.NOTE ---
Date and Time: 06/14/23 1330 Subjective Assessment: Dyspnea mildly improved but persistent. Cough remains nonproductive. 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, normal mood/affect, nml cerebellar function Skin Exam: normal color Eye Exam: PERRL, EOMI, eyes nml inspection Ears, Nose, Throat Exam: normal ENT inspection Neck Exam: normal inspection, non-tender, supple, full range of motion Respiratory Exam: prolonged expirations, other (poor air movement) Cardiovascular Exam: regular rate/rhythm, normal heart sounds Gastrointestinal/Abdomen Exam: soft, normal bowel sounds Extremity Exam: normal inspection, normal range of motion Back Exam: normal range of motion OBJECTIVE DATA Vital Signs: Vital Signs - 24 hr Temp Pulse Resp BP Pulse Ox 06/14/23 11:54 98.7 F 95 H 18 121/67 92 L 06/14/23 10:57 78 18 94 L 06/14/23 07:16 95 H 18 94 L 06/14/23 07:00 98.0 F 75 18 131/82 90 L 06/14/23 04:00 97.5 F 84 17 111/67 91 L 06/14/23 03:21 89 18 90 L 06/13/23 23:44 97.1 F 87 18 110/59 91 L 06/13/23 23:23 92 H 18 93 L 06/13/23 19:20 98 H 18 91 L 06/13/23 19:11 98.2 F 102 H 18 119/71 06/13/23 16:00 97.8 F 82 22 125/74 93 L 06/13/23 13:39 88 22 98 Pain Assessment - Last Documented Pain Intensity 4 Pain Scale Used 0-10 Pain Scale Intake and Output: Intake & Output 06/12/23 06/13/23 06/14/23 06/15/23 11:59 11:59 11:59 11:59 Intake Total 1140 240 Output Total 400 Balance 740 240 Weight 93.6 kg Lab Results: Lab Results-Last 24 Hours 06/13/23 06/13/23 06/13/23 Range/Units 13:21 13:21 13:45 WBC 3.2 L (4.0-10.5) x10^3/uL RBC 5.15 (4.1-5.6) x10^6/uL Hgb 15.4 (12.5-18.0) g/dL Hct 47.1 (42-50) % MCV 91.5 (78-100) fL MCH 29.9 (26-32) pg MCHC 32.7 (32-36) g/dL RDW 12.9 (11.5-14.0) % Plt Count 152 (150-450) x10^3/uL MPV 10.3 (7.5-11.0) fL Gran % 62.4 (36.0-66.0) % Immature Gran % (Auto) 0.6 H (0.00-0.4) % Nucleat RBC Rel Count 0.0 (0.00-0.1) % Eos # (Auto) 0.05 (0-0.5) x10^3/uL Immature Gran # (Auto) 0.02 (0.00-0.03) x10^3u/L Absolute Lymphs (auto) 0.69 L (1.0-4.6) x10^3/uL Absolute Monos (auto) 0.43 (0.0-1.3) x10^3/uL Absolute Nucleated RBC 0.00 (0.00-0.01) x10^3u/L Lymphocytes % 21.4 L (24.0-44.0) % Monocytes % 13.4 H (0.0-12.0) % Eosinophils % 1.6 (0.00-5.0) % Basophils % 0.6 (0.0-0.4) % Absolute Granulocytes 2.01 (1.4-6.9) x10^3/uL Basophils # 0.02 (0-0.4) x10^3/uL Puncture Site RIGHT RADIAL pCO2 31 L (35-45) mmHg pO2 113 H (75-100) mmHg Base Excess 1.1 (-2.0-2.0) O2 Saturation 98.1 (94-100) g/dF ABG pH 7.49 H (7.35-7.45) ABG HCO3 23.6 (22-28) ABG O2 Sat (Measured) 100.0 (95-100) % Edmar Test YES A-a Gradient 48 a/A Ratio 0.70 Hemoglobin 14.8 Carboxyhemoglobin 1.9 (0.0-6.9) % THgb Methemoglobin 0.0 L (1.4-1.5) % Temperature 37.0 C POC O2 Flow Rate 28 % Sodium 139 (137-145) mmol/L Potassium 3.7 3.5 (3.5-5.1) mmol/L Chloride 102 (98-107) mmol/L Carbon Dioxide 27 (22-30) mmol/L Anion Gap 14.3 (5-15) MEQ/L BUN 11 (9-20) mg/dL Creatinine 1.07 (0.66-1.25) mg/dL Estimated GFR > 60.0 ML/MIN Glucose 115 H (74-106) mg/dL Calcium 8.7 (8.4-10.2) mg/dL Total Bilirubin 0.50 (0.2-1.3) mg/dL AST 24 (17-59) U/L ALT 23 (0-50) U/L Alkaline Phosphatase 62 (38-126) U/L Serum Total Protein 8.0 (6.3-8.2) g/dL Albumin 4.6 (3.5-5.0) g/dL Urine Color (Yellow) Urine Appearance (Clear) Urine pH (4.6-8.0) Ur Specific Goldsmith (1.005-1.030) Urine Protein (Negative) Urine Glucose (UA) (Negative) mg/dL Urine Ketones (Negative) Urine Blood (Negative) Urine Nitrite (Negative) Urine Bilirubin (Negative) Urine Urobilinogen (0.2) mg/dL Ur Leukocyte Esterase (Negative) U Hyaline Cast (Auto) (0-2) /LPF Urine Microscopic RBC (0-5) /HPF Urine Microscopic WBC (0-5) /HPF Ur Epithelial Cells (None Seen) /HPF Urine Bacteria (None Seen) /HPF Urine Culture Reflexed (NO) Slides for Path Review 06/13/23 06/14/23 06/14/23 Range/Units 18:55 04:21 04:21 WBC 3.5 L (4.0-10.5) x10^3/uL RBC 5.08 (4.1-5.6) x10^6/uL Hgb 15.3 (12.5-18.0) g/dL Hct 45.3 (42-50) % MCV 89.2 (78-100) fL MCH 30.1 (26-32) pg MCHC 33.8 (32-36) g/dL RDW 13.1 (11.5-14.0) % Plt Count 168 (150-450) x10^3/uL MPV 10.2 (7.5-11.0) fL Gran % 77.9 H (36.0-66.0) % Immature Gran % (Auto) 0.3 (0.00-0.4) % Nucleat RBC Rel Count 0.0 (0.00-0.1) % Eos # (Auto) 0 (0-0.5) x10^3/uL Immature Gran # (Auto) 0.01 (0.00-0.03) x10^3u/L Absolute Lymphs (auto) 0.53 L (1.0-4.6) x10^3/uL Absolute Monos (auto) 0.23 (0.0-1.3) x10^3/uL Absolute Nucleated RBC 0.00 (0.00-0.01) x10^3u/L Lymphocytes % 15.0 L (24.0-44.0) % Monocytes % 6.5 (0.0-12.0) % Eosinophils % 0.0 (0.00-5.0) % Basophils % 0.3 (0.0-0.4) % Absolute Granulocytes 2.76 (1.4-6.9) x10^3/uL Basophils # 0.01 (0-0.4) x10^3/uL Puncture Site pCO2 (35-45) mmHg pO2 (75-100) mmHg Base Excess (-2.0-2.0) O2 Saturation (94-100) g/dF ABG pH (7.35-7.45) ABG HCO3 (22-28) ABG O2 Sat (Measured) (95-100) % Edmar Test A-a Gradient a/A Ratio Hemoglobin Carboxyhemoglobin (0.0-6.9) % THgb Methemoglobin (1.4-1.5) % Temperature C POC O2 Flow Rate % Sodium 136 L (137-145) mmol/L Potassium 4.1 (3.5-5.1) mmol/L Chloride 103 (98-107) mmol/L Carbon Dioxide 23 (22-30) mmol/L Anion Gap 14.4 (5-15) MEQ/L BUN 13 (9-20) mg/dL Creatinine 0.89 (0.66-1.25) mg/dL Estimated GFR > 60.0 ML/MIN Glucose 133 H (74-106) mg/dL Calcium 8.8 (8.4-10.2) mg/dL Total Bilirubin (0.2-1.3) mg/dL AST (17-59) U/L ALT (0-50) U/L Alkaline Phosphatase (38-126) U/L Serum Total Protein (6.3-8.2) g/dL Albumin (3.5-5.0) g/dL Urine Color Yellow (Yellow) Urine Appearance Clear (Clear) Urine pH 7.0 (4.6-8.0) Ur Specific Goldsmith 1.025 (1.005-1.030) Urine Protein Trace A (Negative) Urine Glucose (UA) Negative (Negative) mg/dL Urine Ketones Trace A (Negative) Urine Blood Negative (Negative) Urine Nitrite Negative (Negative) Urine Bilirubin Negative (Negative) Urine Urobilinogen 1.0 A (0.2) mg/dL Ur Leukocyte Esterase Negative (Negative) U Hyaline Cast (Auto) NONE SEEN (0-2) /LPF Urine Microscopic RBC 3-5 (0-5) /HPF Urine Microscopic WBC 0-2 (0-5) /HPF Ur Epithelial Cells None Seen (None Seen) /HPF Urine Bacteria None Seen (None Seen) /HPF Urine Culture Reflexed YES (NO) Slides for Path Review YES Radiology Exams: Radiology Procedures Category Date Time Status CHEST 2 VIEWS (PA AND LAT) Stat Exams 06/13/23 13:27 Completed Multi-Disciplinary Progress Notes: Multi-Disciplinary Progress Notes 06/14/23 10:05 Case Management Note by Nivia Jo S/W PATIENT- HE CONTINUES TO DENY ANY NEW NEEDS AT TIME OF DC. HE PLANS TO DC HOME TO HIS PLF AT TIME OF DC Initialized on 06/14/23 10:05 - END OF NOTE Assessment/Plan (1) COPD with acute exacerbation Current Visit: No Status: Acute Assessment & Plan: Continue steroids and nebulizers. Slow improvement. Since no infiltrate noted, will narrow antibiotics spectrum. Blood culture shows NGTD. Code(s): J44.1 - CHRONIC OBSTRUCTIVE PULMONARY DISEASE W (ACUTE) EXACERBATION (2) Chronic hypoxemic respiratory failure Current Visit: No Status: Chronic Assessment & Plan: Continue to monitor oxygen needs (3) Obstructive sleep apnea Current Visit: No Status: Chronic Assessment & Plan: Follows with pulmonology as outpatient. Code(s): G47.33 - OBSTRUCTIVE SLEEP APNEA (ADULT) (PEDIATRIC) Telemedicine Encounter - Telemedicine Encounter Telemedicine Encounter: The entirety of this encounter was performed via Telemedicine"
[2023-06-14] MEDS: MOTRIN 400 MG PO PRN (15:17)
[2023-06-14] MEDS: Singulair 10 MG PO SCH (21:30)
[2023-06-14] MEDS: Protonix 40MG Tablet PO SCH (21:30)
[2023-06-15] MEDS: DUONEB 0.5-3 MG/3 ml Neb IH SCH ×3 (03:20→11:03)
[2023-06-15] MEDS: MOTRIN 400 MG PO PRN (03:38)
[2023-06-15] MEDS: solu-MEDROL 40 MG, Sterile H2O 10 ml 1 ML IV SCH ×2 (05:45)
[2023-06-15] MEDS: Advair Hfa 115/21 Common canister IH SCH (07:16)
[2023-06-15] MEDS: ROCEPHIN 1 Gm-D5w 50 ml Bag** 1 G/50 ML IVPB IV SCH (09:09)
[2023-06-15] MEDS: ENOXAPARIN SODIUM SQ SCH (09:09)
[2023-06-15] MEDS: Flomax 0.4 MG PO SCH (09:09)
[2023-06-15] MEDS: THEOPHYLLINE ER 24HR PO SCH (09:10)
[2023-06-15] MEDS: Acidophilus TABLET PO SCH (09:10)
[2023-06-15] MEDS: Cozaar 50 MG PO SCH (09:10)
[2023-06-15] MEDS: Coreg 3.125 MG PO SCH (09:10)
[2023-06-15] MEDS: TYLENOL 325 MG PO PRN (09:57)
[2023-06-15 11:28] VITALS: BP 157/66; PULSE 85; RESP 16; TEMP 97.3; O2SAT 96
--- NOTE | 2023-06-15 12:21 | PCM.DS ---
Discharge Summary Date of Admission: 06/13/23 11:35 Date of Discharge: 06/15/23 Admitting Physician: CATINA FERNANDES Primary Care Provider: CATINA FERNANDES Allergies Allergies No Known Drug Allergies Allergy (Verified 11/29/21 05:31) Hospital Summary - Hospital Course Hospital Course: Patient was directly admitted for COPD exacerbation and initial concern for pneumonia. The patient improved with antibiotics, nebulizers and steroids. CXR did not reveal infiltrate, but the patient will complete an antibiotics course for probable acute bronchitis and possible acute sinusitis. The patient will follow up with Dr. Fernandes and Dr. Blake. - Vitals & Intake/Output Vital Signs: Vital Signs Temperature 97.3 F 06/15/23 11:27 Pulse Rate 85 06/15/23 11:27 Respiratory Rate 16 06/15/23 11:27 Blood Pressure 157/66 06/15/23 11:27 O2 Sat by Pulse Oximetry 96 06/15/23 11:27 Intake & Output: Intake & Output 06/13/23 06/14/23 06/15/23 06/16/23 11:59 11:59 11:59 11:59 Intake Total 1140 2120 Output Total 400 Balance 740 2120 Weight 93.6 kg - Lab Result Diagrams: 06/14/23 04:21 06/14/23 04:21 Micro Results-Entire Visit: Microbiology 06/13/23 18:55 Urine Culture - Final Clean Catch Midstream <10K NORMAL SKIN HEATHER PROBABLE SKIN CONTAMINANT 06/13/23 13:21 Blood Culture - Preliminary Blood 06/13/23 13:28 Blood Culture - Preliminary Blood - Radiology Exams Ordered Rad Exams-Entire Visit: Radiology Procedures Category Date Time Status CHEST 2 VIEWS (PA AND LAT) Stat Exams 06/13/23 13:27 Completed - Procedures and Test Procedures and Tests throughout Hospitalization: Therapy Orders & Screens 06/13/23 13:12 Respiratory Therapy Consult ROUTINE Comment: Reason For Exam: Diagnosis: COPD exacerbation 06/13/23 13:27 PT Eval & Treat (MD Order) ONCE Reason for Eval:: COPD exacerbation Diagnosis: COPD exacerbation Oxygen Nasal Cannula 2 lpm Comment: Diagnosis: COPD exacerbation Discharge Exam General Appearance: no apparent distress, alert Neurologic Exam: alert, oriented x 3, cooperative, vp client services II-XII nml as tested, normal mood/affect, nml cerebellar function Eye Exam: PERRL, EOMI, eyes nml inspection Ears, Nose, Throat Exam: normal ENT inspection Neck Exam: normal inspection, non-tender, supple, full range of motion Respiratory Exam: other (Improved air movement.) Cardiovascular Exam: regular rate/rhythm, normal heart sounds Gastrointestinal/Abdomen Exam: soft, normal bowel sounds Back Exam: normal range of motion Extremity Exam: normal inspection, normal range of motion Skin Exam: normal color Final Diagnosis/Problem List - Final Discharge Diagnosis/Problem (1) COPD with acute exacerbation Current Visit: No Status: Acute Assessment & Plan: Will discharge on po cedfinir and po prednisone Code(s): J44.1 - CHRONIC OBSTRUCTIVE PULMONARY DISEASE W (ACUTE) EXACERBATION (2) Chronic hypoxemic respiratory failure Current Visit: No Status: Chronic Assessment & Plan: Will follow up with Dr. Blake (3) Obstructive sleep apnea Current Visit: No Status: Chronic Assessment & Plan: Chronic. Code(s): G47.33 - OBSTRUCTIVE SLEEP APNEA (ADULT) (PEDIATRIC) Telemedicine Encounter - Telemedicine Encounter Telemedicine Encounter: The entirety of this encounter was performed via Telemedicine" - Discharge Disposition: Home, Self-Care Condition: Stable Prescriptions: New Cefdinir 300 mg PO BID 5 Days #10 cap Prednisone 10 mg [Deltasone 10 mg] 10 mg PO DAILY 12 Days #30 tablet L. Acidophilus/L.bulgaricus [Lactobacillus Tablet] 1 each PO DAILY 7 Days #7 tablet Continue Albuterol/Ipratropium 3ml Neb* [DUONEB 0.5-3 MG/3 ml Neb] 3 ml IH QID PRN Losartan Potassium [Cozaar] 12.5 mg PO DAILY Theophylline Anhydrous 300 mg* [Theodur 300MG] 300 mg PO BID Montelukast Sodium 10 mg [Singulair 10 MG] 10 mg PO HS Albuterol Sulfate [Albuterol Sulfate Hfa] 8.5 gm IH QID Carvedilol 3.125 mg [Coreg 3.125 MG] 3.125 mg PO BID Budesonide/Glycopyr/Formoterol [Breztri Aerosphere Inhaler] 2 puffs IH BID Tamsulosin HCl 0.4 mg [Flomax 0.4 MG] 0.4 mg PO BID PANTOPRAZOLE 40 mg Tablet [Protonix 40MG Tablet] 40 mg PO HS Outpatient Orders: HEMOGLOBIN A1C Time Frame: 1230 Days, Facility: [facility], Location: LABORATORY Additional Instructions: Limit strenuous activity. Follow up with: CATINA FERNANDES MD [Primary Care Provider] - NEHAL BLAKE [NON-STAFF PHY W/O PRIVILEGES] -
== END 2023-06-15 13:30 | disposition home or self-care (01) ==
LOC: MED SURG 11:35
PROVIDERS: ADMIT General Practice; ATTEND General Practice
DX: J44.1 Chronic obstructive pulmonary disease with (acute) exacerbation (principal); J96.11 Chronic respiratory failure with hypoxia; G47.33 Obstructive sleep apnea (adult) (pediatric); Z79.01 Long term (current) use of anticoagulants; Z79.899 Other long term (current) drug therapy; Z87.891 Personal history of nicotine dependence
CPT/HCPCS: 36415; 36600; 71046; 80048; 80053; 81001; 82375; 82803; 85025; 87040; 87086; 94640; 94760; 97161; Q3014; J0696; J1650; J2920; A9270-GY